=== PATIENT | female | born 1945 | race Caucasian/White ===

== ENCOUNTER → 2017-09-24 11:06 | Outpatient (CLI) | payer MEDICARE, SELFPAY ==
--- NOTE | 2017-09-24 11:15 | XR_ITS ---
XR lumbar spine min 4V Ordering Physician: George Dietrich MD Patient Age: 72 years: Female HISTORY: ITS.REASON: LUMBAGO WITH LT SCIATICA TECHNIQUE: Five-view lumbar spine series COMPARISON : No previous FINDINGS The vertebral bodies appear intact with no compression fractures there is a mild dextrocurvature at the lower L-spine L4/S1. This reflects the degenerative disc space narrowing here at the lower L-spine. Nonspecific straightening of the lumbar spine on lateral view noted. L5/S1. Mild disc space narrowing and vacuum phenomena. Disc space during most evident to the right L4/5. Most pronounced disc space narrowing & spondylosis at level, most evident disc narrowing to the left.. Sclerotic endplate reactive changes about this markedly narrowed disc space. Mild marginal osteophytes seen circumferentially... Posterior hypertrophic ridging does appear encroach upon the neural foramen bilaterally. L3/4. Mild disc space narrowing L2/3 mild disc space narrowing L1/2. Fairly pronounced degenerative disc space narrowing. Again note reactive sclerotic endplate changes about the narrowed disc space. Circumferential marginal osteophytes most evident rightward L1/2. Facet hypertrophy arthropathy throughout the L-spine. A most evident on the right at the lower L-spine. SI joints satisfactory. IMPRESSION Degenerative changes lumbar spine. Multilevel degenerative disc space narrowing. Most pronounced degenerative disc space narrowing L4/5 & L1/2 . Associated mild dextrocurvature at the lower most L-spine
== END ==
PROVIDERS: PCP Family Medicine; Visit Provider Family Medicine
DX: M54.42 Lumbago with sciatica, left side (principal)
CPT/HCPCS: 72110

== ENCOUNTER → 2017-10-05 14:48 | Outpatient (CLI) | payer MEDICARE, SELFPAY ==
--- NOTE | 2017-10-05 14:54 | XR_ITS ---
XR knee LT 3V HISTORY: ITS.REASON: LEFT KNEE PAIN ORDERING PHYSICIAN: Rao Salazar MD PATIENT AGE: 72 years COMPARISON: None FINDINGS: No fracture or dislocation. No lytic or blastic change. Normal mineralization. There is minimal spurring of the knee joint space medially. The joint space itself is relatively well-preserved. IMPRESSION: Minimal spurring along the medial compartment suggesting minimal osteoarthritic change otherwise negative left knee
== END ==
PROVIDERS: PCP Family Medicine; Visit Provider Family Medicine
DX: M25.562 Pain in left knee (principal)
CPT/HCPCS: 73562

== ENCOUNTER → 2018-04-20 10:14 | Outpatient (CLI) | payer MEDICARE, SELFPAY ==
--- NOTE | 2018-04-20 | MM_ITS ---
MM Dig screening mamm BI w/CAD ORDERING PHYSICIAN : [facility] PATIENT AGE: 72 years GENDER: Female COMPARISON: December 2015, March 2017, August 20142013. INDICATION: ITS.REASON: SCREENING. No hormones. No new complaints noncontributory family history TECHNIQUE: Standard CC and MLO images were obtained. R2 CAD reviewed. Additional nipple profile CC obtained FINDINGS: [id number] areas residual breast tissue density seen at the retroareolar region, more evident on right than left. This pattern is stable since previous studies RIGHT BREAST:. No significant findings. No new areas of concern. Stable retroareolar fibroglandular elements. Minimal vascular calcifications. LEFT BREAST:No significant new findings. Bilateral follow-up one year IMPRESSION: Stable bilateral mammogram. No new areas of concern. Follow-up one year recommended BI-RADS Category: 1 Negative RECOMMENDED FOLLOW-UP: 1YR 1 YEAR FOLLOW-UP (A letter has been sent to the patient regarding results of the study.)
== END ==
PROVIDERS: PCP Family Medicine; Visit Provider Nurse Practitioner Obstetrics & Gynecology
DX: Z12.31 Encounter for screening mammogram for malignant neoplasm of breast (principal)
CPT/HCPCS: 77067

== ENCOUNTER → 2020-02-21 15:11 | Outpatient (CLI) | payer MEDICARE, SELFPAY ==
--- NOTE | 2020-02-21 15:14 | MM_ITS ---
PROCEDURE: MM DIG SCREENING MAMM BI W/CAD Referring Doctor: Rao Salazar Patient Age:74Y CLINICAL INDICATION: SCREENING no hormones, no new complaints, and noncontributory family history COMPARISON: MG [facility]B DIG MAMM-SCREEN TERESA from 08/14/2013 MG [facility]B DIG MAMM-SCREEN TERESA from 08/16/2014 MG DMSB DIG MAMM-SCREEN TERESA from 12/18/2015 MG DMSB DIG MAMM-SCREEN TERESA W/CAD from 03/10/2017 MG [facility] MM Dig screening mamm BI w/CAD from 04/20/2018 TECHNIQUE: Standard CC and MLO images were obtained. R2 CAD reviewed. Bilateral digital breast tomosynthesis included. FINDINGS: Moderate breast density. Area of asymmetric fibroglandular elements most notable at the right retroareolar region-but appearing stable compared to multiple previous studies dating back to 2013. At the left breast a areas mild asymmetric features appear stable, most notable area at superior central left breast appears similar to previous studies dating back to 2015. No significant appearing change of overall left nor right breast but. Prior studies are quite helpful bilaterally in supporting stability No new dominant or suspicious mass. No suspicious calcifications. Bilateral follow-up 1 year recommended IMPRESSION: Stable bilateral mammogram; with no new areas of concern A stable areas of asymmetry and areas of moderate density breast Bilateral follow-up 1 year recommended BI-RAD Category: 2 Benign Finding(s) FOLLOW-UP: 1YR 1 Year Follow-up (A letter has been sent to the patient regarding results of the study.) Dictated by: Jaciel Johnson MD 02/26/2020 11:57 Jaciel Johnson MD in [place] 02/26/2020 11:57
== END ==
PROVIDERS: PCP Family Medicine; Visit Provider Family Medicine
DX: Z12.31 Encounter for screening mammogram for malignant neoplasm of breast (principal)
CPT/HCPCS: 77063; 77067

== ENCOUNTER 2020-06-02 17:31 | Inpatient (IN) | payer MEDICARE, SELFPAY ==
[2020-06-02 17:33] VITALS: BP 134/40; PULSE 67; RESP 16; TEMP 36.6; O2SAT 98; BMI 21.9
[2020-06-02 17:55] VITALS: BMI 21.9
--- NOTE | 2020-06-02 17:57 | CT_ITS ---
PROCEDURE: CT CERVICAL SPINE WO CON Referring Doctor: Julio Cesar Hernandez Patient Age:75Y CLINICAL INDICATION: FALL Fall does remember what happened. Hit head. 2 COMPARISON: CT CT CERVICAL SPINE WO CON from 04/02/[address] HEAD/BRAIN WO CON from 06/02/2020 TECHNIQUE: No IV contrast Helical axial images obtained with sagittal and coronal reformats. All CT scans at the facility use one or more dose reduction, viz: automated exposure control, ma/kV adjustment per patient size (including targeted exams where dose is matched to indication, i.e. head), or iterative reconstruction technique. FINDINGS: Cervical spine-no fracture nor subluxation is evident. Normal prevertebral soft tissues.. Stable satisfactory alignment Degenerative changes: Disc space narrowing with posterior osteophytes developing at C5/6, C6/7; this yields borderline central canal stenosis C6/7; mild foraminal encroachment bilaterally at each of these levels. . At C5/6 spurring is most evident to the left... . C4/5.. The scant posterior osteophyte and uncovertebral joint formation Degenerative facet changes bilaterally. On the right these are most evident at C2/3-C3/4. On the left facets C4/5 most evident and to less degree C2/3-and C 3/4... Normal C1/C2 relationships. Apices of lungs are clear with no acute findings. IMPRESSION: No acute fracture or subluxation of the cervical spine Degenerative changes C-spine as detailed in text A degenerative disc space narrowing and spondylosis most evident at C5/6 and-C6/7. With borderline spinal stenosis C6/7 A the the the Dictated by: Jaciel Johnson MD 06/02/2020 22:09 Jaciel Johnson MD in [place] 06/02/2020 22:09
--- NOTE | 2020-06-02 17:57 | CT_ITS ---
PROCEDURE: CT HEAD/BRAIN WO CON Referring Doctor: Julio Cesar Hernandez Patient Age:75Y CLINICAL INDICATION: FALL Patient does not remember what happened. Multiple injuries COMPARISON: CT CT HEAD/BRAIN WO CON from 04/02/2019 TECHNIQUE: No IV contrast. Standard axial images were obtained. All CT scans at the facility use one or more dose reduction, viz: automated exposure control, ma/kV adjustment per patient size (including targeted exams where dose is matched to indication, i.e. head), or iterative reconstruction technique. FINDINGS: No acute intracranial findings. No intracranial hemorrhage.. No territorial infarct No subdural or extra-axial fluid collection is evident. . . There is diffuse cerebral atrophy age-appropriate. Mild chronic small vessel deep white-matter ischemic gliotic changes are likely present accounting for some subtle low-density in the periventricular deep white matter regions but No hydrocephalus.The ventricles and basal cisterns appear clear and satisfactory. No mass or midline shift nor mass effect. Posterior fossa is satisfactory. Note dense calcification of the left vertebral artery as well as moderate calcification at the carotid siphons bilaterally.. Skull intact-calvarium and scalp unremarkable. . Mastoid air cells are well developed and clear. Although the sclerotic changes at the right mastoid tip may reflect old right mastoiditis in this region. Nomastoid effusions currently Middle ear clear. IAC's symmetric. . Mild mucosal thickening at the posterior sphenoid sinus. Maxillary ethmoid and frontal sinuses are clear a. the the the the. IMPRESSION: No acute intracranial findings Dictated by: Jaciel Johnson MD 06/02/2020 18:53 Jaciel Johnson MD in [place] 06/02/2020 18:53
--- NOTE | 2020-06-02 17:57 | ECG_ITS ---
APPROVED REPORT Exam: Resting ECG HR:66 bpm ECG Measurements Heart Rate 66 AXES HI 132 P 79 QRSd 84 QRS 27 QT 414 T 52 QTc 434 Conclusion Normal sinus rhythm Normal ECG Electronically signed by : Lee Esposito, 06/03/2020 05:53:18
--- NOTE | 2020-06-02 17:57 | CT_ITS ---
PROCEDURE: CT HIP LT WO CON Referring Doctor: Julio Cesar Hernandez Patient Age:75Y CLINICAL HISTORY: FALL does not remember what happened. Left hip pain COMPARISON: No exams were available for comparison TECHNIQUE: No IV contrast Helical axial images obtained with sagittal and coronal reformats. All CT scans at the facility use one or more dose reduction, viz: automated exposure control, ma/kV adjustment per patient size (including targeted exams where dose is matched to indication, i.e. head), or iterative reconstruction technique. FINDINGS: . Acute fracture transversing left femoral neck . superiorly fracture passes from the midportion of the femoral neck then passes vertical, oblique course extending through the cortex inferiorly at upper margin of the lesser trochanter. Superiorly approximate 6 mm anterior displacement of the distal fracture fragment. Slight angulation at the fracture with with apex of fracture directed anteriorly. Minor rotation at the fracture appreciated on axial images. . The acetabulum is intact with no fracture. There is some hypertrophic lipping at acetabulum; femoral head itself seems to be intact. Diffuse demineralization noted. The iliac bone, ischium, left superior and inferior pubic ramus intact. Visualized portions of sacrum intact. Facet hypertrophy at lower L-spine noted. Also degenerate disc disc space narrowing L5/S1 IMPRESSION: Left femoral neck fracture. The fracture passes down to the femoral neck to extend inferiorly at the the lesser trochanter Diffuse osteopenia Dictated by: Jaciel Johnson MD 06/02/2020 21:38 Jaciel Johnson MD in [place] 06/02/2020 21:38
--- NOTE | 2020-06-02 18:15 | PC.NURSE ---
PT WENT TO CT
[2020-06-02 18:22] LABS: Basophils # 0.1 K/mm3 (0-0.2); Basophils % 0.5 % (0.1-2.0); Eosinophils % 0.2 % (0.1-12.0); Hematocrit 35.7 % (37.0-47.0); Hemoglobin 11.8 g/dL (12.2-16.2); Lymphocytes # 1.1 K/mm3 (0.7-4.5); Mean Corpuscular HGB Conc 33.1 g/dL (31.8-35.4); Mean Corpuscular Hemoglobin 30.9 pg (27.0-31.2); Mean Corpuscular Volume 93.5 fl (81-99); Mean Platelet Volume 8.2 fl (7.4-10.4); Monocytes # 0.5 K/mm3 (0.1-1.0); Monocytes % 3.7 % (1.7-9.3); Neutrophils # 10.9 K/mm3 (1.8-7.8); Neutrophils % 86.6 % (37.0-80.0); Platelet Count 247 K/mm3 (142-424); Red Blood Count 3.81 M/mm3 (4.20-5.40); Red Cell Distribution Width 12.1 % (11.5-17.5); White Blood Count 12.6 K/mm3 (4.8-10.8)
[2020-06-02 18:23] LABS: MANUAL DIFFERENTIAL MANUAL DIFFERENTIAL (MANUAL DIFF)
--- NOTE | 2020-06-02 18:29 | PC.NURSE ---
Calling [facility]
[2020-06-02 18:33] LABS: Anion Gap 13.9 mEq/L (5-15); Blood Urea Nitrogen 18 mg/dl (7-17); Calcium 9.2 mg/dl (8.4-10.2); Carbon Dioxide 27 mmol/L (22.0-30.0); Chloride 100 mmol/L (98-107); Creatinine Clearance Estimated 42 mL/min (50-200); Estimated Glomerular Filt Rate 61 ml/min (>60); GFR (African American) 74 ML/MIN (>60); Glucose 137 mg/dl (74-100); Potassium 3.9 mmoL/L (3.5-5.1); Sodium 137 mmol/L (136-145)
[2020-06-02 18:35] LABS: Lymphocytes % 10 % (10-50); Monocytes % 1 % (2-9); Neutrophils % 85 % (42-76); Platelet Estimate Normal; RBC Morphology Normal; Total Cells Counted 100
--- NOTE | 2020-06-02 19:14 | XR_ITS ---
PROCEDURE: XR CHEST PORTABLE Referring Doctor: David Julio Cesar Patient Age:75Y CLINICAL HISTORY: hip fx COMPARISON: CT CT CERVICAL SPINE WO CON from 04/02/[address] CERVICAL SPINE WO CON from 06/02/2020 FINDINGS: AP supine chest x-ray. Mild cardiomegaly. . A prominent dense calcified node at AP window region is seen on previous [address] image reflects old granulomatous disease the Slight coarsening of lung markings bilaterally-suspect most likely reflects mild chronic changes possibly with some mild vascular congestion. The supine projection does accentuate upper lobe vascularity which may also contribute to this appearance a as well. But minor wispy density at the left suprahilar region favor reflect some minimal atelectasis and scarring posteriorly but difficult to exclude a subtle early patchy area infiltrate here.. Upper normal markings right infrahilar region more so than left infrahilar region most likely reflecting slight crowding of generous vascular markings; doubt but difficult to exclude early infiltrate particularly at Right infrahilar region CP angles are clear no pleural effusion but no pneumothorax.. Ribs and chest wall unremarkable IMPRESSION: Slight coarsening markings bilaterally most likely reflecting mild chronic changes, possibly with subtle vascular congestion as well. Cardiomegaly., . Mild accentuation of markings infrahilar regions elsewhere most likely reflecting chronic change and mild atelectasis,. Consider, and might suggest follow-up chest x-ray in morning to re-evaluate in attempt to better exclude subtle early infiltrate in view of the leukocytosis, particularly at right infrahilar region. Dictated by: Jaciel Johnson MD 06/02/2020 21:56 Jaciel Johnson MD in [place] 06/02/2020 21:56
--- NOTE | 2020-06-02 19:21 | [facility].EDGENADL ---
ED Disposition Clinical Impression: Closed left hip fracture Qualifiers: Encounter type: initial encounter Qualified Code(s): S72.002A - Fracture of unspecified part of neck of left femur, initial encounter for closed fracture Disposition: Admitted As Inpatient Condition on Discharge: Good Referrals: Rao Salazar MD [Primary Care Provider] - - Critical Care Critical Care Time: No Attestation: On 06/02/20, the high probability of a clinically significant, sudden or life threatening deterioration of the following system(s) required my full and direct attention, intervention and personal management. The time I documented below is in addition to time spent performing reported procedures but includes the following listed in this critical care notation. Medical Decision Making - Mitch Inquiry Pt receiving controlled substance: Yes Mitch was queried for this patient: No Reason not queried -: Emergent pt cond-no time Risks and benefits of using a controlled substance: were not discussed with pt by me Vital Signs: 06/02/20 17:33 Temperature 97.8 F Temperature Source Oral Pulse Rate [Radial] 67 Respiratory Rate 16 Blood Pressure [Right Radial Artery] 134/40 L Blood Pressure Mean [Right Radial Artery] 71 Blood Pressure Position [Right Radial Artery] Sitting 02 Sat by Pulse Oximetry 98 Oxygen Delivery Method Room Air - Lab Data Lab Results 06/02/20 18:15: Sodium 137, Potassium 3.9, Chloride 100, Carbon Dioxide 27, Anion Gap 13.9, BUN 18 H, Creatinine 0.90, Estimated Creat Clear 42, Estimated GFR 61, Est GFR ( Amer) 74, Glucose 137 H, Calcium 9.2 06/02/20 18:15: WBC 12.6 H, RBC 3.81 L, Hgb 11.8 L, Hct 35.7 L, MCV 93.5, MCH 30.9, MCHC 33.1, RDW 12.1, Plt Count 247, MPV 8.2, Neut % (Auto) 86.6 H, Lymph % (Auto) 9.0 L, Quay % (Auto) 3.7, Eos % (Auto) 0.2, Baso % (Auto) 0.5, Neut # (Auto) 10.9 H, Lymph # (Auto) 1.1, Quay # (Auto) 0.5, Eos # (Auto) 0.0, Baso # (Auto) 0.1, Total Counted 100, Neutrophils % (Manual) 85 H, Band Neutrophils % 4.0, Lymphocytes % (Manual) 10, Monocytes % (Manual) 1 L, Platelet Estimate Normal, RBC Morphology Normal 06/02/20 19:50: Urine Color Yellow, Urine Appearance Clear, Urine pH 6.0, Ur Specific [place] 1.025, Urine Protein Trace, Urine Glucose (UA) Negative, Urine Ketones Trace, Urine Blood 1+, Urine Nitrate Negative, Urine Bilirubin Negative, Urine Urobilinogen 0.2, Ur Leukocyte Esterase Negative, Urine RBC 5-10, Ur Squamous Epith Cells 3-5, Amorphous Sediment Trace, Urine Mucus Trace Result diagrams: 06/02/20 18:15 06/02/20 18:15 Orders (Tests/Meds): ED MEDICATIONS Generic Name Dose Route Start Last Admin Trade Name Freq PRN Reason Stop Dose Admin Sodium Chloride 1,000 mls @ 999 mls/hr 06/02/20 18:30 06/02/20 18:39 Sod Chlor 0.9% 1000ml Bag IV 06/02/20 19:30 999 mls/hr .Q1H1M VANESA Administration Discontinued Medications Generic Name Dose Route Start Last Admin Trade Name Freq PRN Reason Stop Dose Admin Morphine Sulfate 2 mg 06/02/20 18:17 06/02/20 18:39 Morphine 2mg/Ml Syringe IV 06/02/20 18:18 2 mg ONCE ONE Administration Morphine Sulfate 4 mg 06/02/20 19:13 06/02/20 19:24 Morphine 4mg/Ml Syringe IV 06/02/20 19:14 4 mg ONCE ONE Administration Ondansetron HCl 4 mg 06/02/20 18:17 06/02/20 18:39 Ondansetron 4mg/2ml Vial IV 06/02/20 18:18 4 mg ONCE ONE Administration ORDERS Category Date Time Status CT cervical spine wo con Stat Cat Scan 06/02/20 17:[address] hip LT wo con Stat Cat Scan 06/02/20 17:57 Taken Hip XR left minimum 2 views [XR hip LT 2-3V w/pelvis] Exams 06/02/20 19:22 Taken Stat XR chest portable Stat Exams 06/02/20 19:14 Taken Covid-19 IgG/IgM ([facility]) Stat Lab 06/02/20 18:15 Received - CT Data CT Scan: Head, C-Spine, Other (left hip) Time Received: 19:10 ([facility] fax) ED CT Reviewed: Yes: I have viewed the radiologist's interpretation Findings Narrative: Head: Negative Cervi
--- NOTE | 2020-06-02 19:22 | XR_ITS ---
PROCEDURE: XR HIP LT 2-3V W/PELVIS Referring Doctor: Julio Cesar Hernandez Patient Age:75Y CLINICAL INDICATION: hip fx left hip pain left hip fracture fall COMPARISON: CT CT HIP LT WO CON from 06/02/2020 FINDINGS: Left hip AP and cross-table lateral view, with AP pelvis performed today There is a left femoral neck fracture through the base of the femoral neck. The inferior aspect of the fracture extends to the upper margin of the lesser trochanter the superior aspect the fracture extends through the mid to lateral left femoral neck. No prominent displacement. The left femoral head appears to articulate satisfactorily with the left acetabulum. Mild hypertrophic lipping at both acetabulum. Hip joint spaces are well maintained. The osseous pelvis is intact but the right hip otherwise unremarkable. Multilevel degenerative disc changes changes lower L-spine noted IMPRESSION: Left femoral neck fracture. The fracture passes through the femoral neck down to the lesser trochanter Osseous pelvis otherwise intact Dictated by: Jaciel Johnson MD 06/02/2020 22:37 Jaciel Johnson MD in [place] 06/02/2020 22:37
--- NOTE | 2020-06-02 19:36 | PC.NURSE ---
Dr Martin alonzod for Dr Hernandez
--- NOTE | 2020-06-02 19:46 | PC.NURSE ---
Dr Salazar paged again
--- NOTE | 2020-06-02 19:51 | PC.NURSE ---
Dr Hernandez speaking with Dr Salazar
--- NOTE | 2020-06-02 19:52 | PC.NURSE ---
call placed to house for bed assignment, spoke with brendon
[2020-06-02 19:57] LABS: Appearance,Urine CLEAR (Clear); Blood, Urine 1+ (Negative); Color,Urine YELLOW (Yellow); Glucose,Urine (UA) Negative (Negative); Ketones,Urine TRACE (Negative); Leukocyte Esterase,Urine Negative (Negative); Microscopic, Urine URINE MICROSCOPIC (MICROSCOPIC); Nitrate,Urine Negative (Negative); Protein,Urine TRACE (Negative); Specific Gravity, Urine 1.025 (1.005-1.030); Urobilinogen,Urine 0.2 EU/dl (0.2)
[2020-06-02 20:04] LABS: Amorphous Sediment,Urine Trace /lpf; Bilirubin,Urine Negative (Negative); Mucus,Urine Trace /lpf
[2020-06-02 20:33] LABS: Coronavirus 19 IgG Antibody Negative (Negative); Coronavirus 19 IgM Antibody Negative (Negative)
[2020-06-02 20:47] VITALS: BP 119/75; PULSE 91; RESP 15; TEMP 36.6; O2SAT 98
[2020-06-02 22:00] VITALS: BP 123/56; PULSE 75; RESP 18; TEMP 37.1; O2SAT 97
--- NOTE | 2020-06-02 22:30 | PC.NURSE ---
ADMISSION ASSESSMENT COMPLETE,PT LUNGS CLEAR ALL FRONT,RESP.EVEN AND UNLABORED.SKIN WARM TO TOUCH,PT SEDATED AT TIMES,EASILY AROUSED BY NAME.SHE WAS GIVEN MORPHINE A COUPLE TIMES AND IT WAS NOT HELPING PAIN SO ER GAVE HER DILAUDID PRIOR TO BRING HER TO FLOOR.PT ON 2 LITER OXYGEN PER NC.SAT LEVEL WAS 86-87 ON 2 LITERS OF OXYGEN,HAD PT TAKE A SEVERAL DEEP BREATHS AND IT COMES UP TO 98-99%.PT REPORTS PAIN IS BETTER,A 2 NOW.PT S LEFT LEG SHORTER THAN RIGHT,BILATERAL PEDAL PULSES NOTED,WARM TO TOUCH.PT HAS HER OWN THIGH HIGH TEDS ON.BAKER CATH PATENT AND DRAINING DARK YELLOW URINE.PULSE OX REMAINS ON WITH PT DOOR OPEN TO HEAR ALARM,SO CAN TELL PT TO TAKE SOME DEEP BREATHES,WILL CONTINUE TO MONITOR
[2020-06-03] VITALS (9 sets, daily range): BP systolic 127–159; BP diastolic 62–98; PULSE 76–94; RESP 16–20; TEMP 36.6–38.8; O2SAT 94–98
--- NOTE | 2020-06-03 | XR_ITS ---
PROCEDURE: XR CHEST PORTABLE CLINICAL HISTORY: f/u per radiologist COMPARISON: CR XR CHEST PORTABLE from 06/02/2020 FINDINGS: The cardiomediastinal silhouette and pulmonary vascularity are within normal limits. The lungs are clear without infiltrates, suspicious nodules, or pleural effusions. Old granulomatous disease. No acute bony findings. Previous suspected area of infiltrate is felt to be due to the overlapping vessels. IMPRESSION: No acute findings. Dictated by: Vicente Werner MD 06/03/2020 10:16 Vicente Werner MD in [place] 06/03/2020 10:16
--- NOTE | 2020-06-03 00:15 | PC.NURSE ---
ALARM GOING OFF ON PULSE OX MACHINE,,SAT LEVEL AT 84-87% WITH 2 LITERS OF OXYGEN,PT SNORING,EASILY AROUSED AND HAD PT TAKE SOME DEEP BREATHES AND SAT.LEVEL 98%.ASKED PT IF SHE HAD BEEN TOLD SHE HAD SLEEP APNEA OR THAT SHE SNORED AND SHE SAID NO,BUT HER SAID SHE SNORED. B/P 127/66,P-87,R-18,T-98.1WILL CONTINUE TO MONITOR,PT DENIES ANY PAIN AT THIS TIME
--- NOTE | 2020-06-03 04:59 | PC.NURSE ---
PT HAS SLEPT WELL UNTIL THIS MORNING LEFT HIP PAIN AGAIN,MEDICATED WITH DILAUDID 1 MG IVP AND THEN ZOFRAN FOR NAUSEA AFTER THAT,SINCE THE DILAUDID MADE HER NAUSEATED.PT LUNGS CLEAR,RESP.EVEN AND UNLABORED.LEFT LEG SHORTER THAN RIGHT,THIGH HIGH LAURENCE HOSE REMAIN ON BOTH LEGS,PEDAL PULSE BILATERALLY,BAKER DRAINING DARK YELLOW URINE AND 200ML EMPTIED FROM IT.PULSE OX REMAINS ON PT SINCE HER SAT.LEVELS DROPPED WITH THE DILAUDID EARLIER,WILL CONTINUE TO MONITOR
--- NOTE | 2020-06-03 05:14 | PC.NURSE ---
PT SAT,LEVEL DROPPED AGAIN TO 87%,PT EASILY AROUSED,HAD HER TAKE SOME DEEP BREATHES AND IT RETURNED TO 96%.PT SAID PAIN AND NAUSEA WAS BETTER,PAIN MAYBE A 2 NOW,REPORTED MOUTH BEING DRY,SWAB TOOTHETTES GIVEN SO PT COULD WET HER MOUTH
--- NOTE | 2020-06-03 07:25 | PC.NURSE ---
Report received from LUCA Cedeno.
--- NOTE | 2020-06-03 07:30 | PC.NURSE ---
REPORT GIVEN TO JEFFRN
--- NOTE | 2020-06-03 07:36 | P.CONPHA_ITS ---
[facility] Pharmacy VTE Monitoring - Patient Demographics Admission date: 06/02/20 Report Date: 06/03/20 Time: 07:36 Allergies/Adverse Reactions: Patient Allergies No Known Allergies Allergy (Verified 04/02/19 06:07) Height: 1.57 m Weight: 54.431 kg Patient Problems: Current Active Problems Closed left hip fracture (Acute) - VTE Risk Labs: VTE Related Lab Results Hgb 11.8 g/dL (12.2-16.2) L 06/02/20 18:15 Hct 35.7 % (37.0-47.0) L 06/02/20 18:15 Plt Count 247 K/mm3 (142-424) 06/02/20 18:15 BUN 18 mg/dl (7-17) H 06/02/20 18:15 Creatinine 0.90 mg/dl (0.52-1.04) 06/02/20 18:15 Estimated Creat Clear 42 mL/min (50-200) 06/02/20 18:15 Was VTE Risk Assessment Performed: Yes VTE Score: 3 VTE Risk Level: Low Risk - Prophylaxis VTE Prophylaxis Ordered?: Yes Types of VTE Prophylaxis: TEDS Knee High Location of Applied Device: Bilateral Lower Extremeties
--- NOTE | 2020-06-03 08:02 | PC.NURSE ---
Suly Stewart APRN at bs to see pt.
--- NOTE | 2020-06-03 08:10 | PC.NURSE ---
Dr. Salazar at bs to see pt. States that he is going to get Cardiology to consult and order an Echo. R/V.
--- NOTE | 2020-06-03 08:15 | PC.NURSE ---
Dr. Salazar remains present in unit and is now personally speaking with on phone.
--- NOTE | 2020-06-03 08:16 | PC.NURSE ---
Radiology at performing chest xray.
--- NOTE | 2020-06-03 08:30 | PC.NURSE ---
Dr. Orozco at bs r/t consultation and discussing POC with pt. Pt verbalizes understanding.
--- NOTE | 2020-06-03 08:49 | CA_ITS ---
APPROVED REPORT EXAM: Comprehensive 2D, Doppler, and color-flow Echocardiogram Toll Line Inspector: Teodora Luna CRT Ht: 5 ft 2 in Wt: 120lbs BSA: 1.54 BP: 134/40 mmHg Indications: Hypertension/HDD, hip fx 2D Dimensions LVOT 1.75 cm (M/F) 1.5-2.5 M-Mode Dimensions RVDd 2.39 cm (0.9-2.6) LA Diam 3.23 cm (1.9-4.0) LVDd 4.67 cm (3.5-5.7) Ao Diam 2.77 cm (2.0-3.7) LVDs 2.98 cm (3.5-5.7) IVSd 1.18 cm (0.6-1.1) PWd 0.99 cm (0.6-1.1) EF (Teich) 65.90% FS 36.20% EDV (Teich) 100.80 mL ESV (Teich) 34.40 mL LV Diastology E Decel Time 247.00 (160-240 msec) E/A Ratio 1.16 MED E' 13.10 (< 7 cm/sec) MED A' 17.00 cm/s E'/MED E' Ratio 9.38 (>14) LAT E' 11.70 (<10 cm/sec) LAT A' 15.10 cm/s E/LAT E' Ratio 10.50 (>14) Aortic Valve LVOT Max 164.00 (70-110 cm/s) LVOT VTI 37.89 cm AoV Peak Mina. 180.00 (50-130 cm/s) AI PHT 285.00 ms AO Peak GR. 13.00 mmHg AO Mean GR. 6.70 (<5 mmHg) AO VTI 35.93 (18-25 cm) DARIO (VTI) 2.54 (2.5-4.5 cm2) Mitral Valve MV A Velocity 106.00 (40-130 cm/s) E/A Ratio 1.16 MV Decel. Time 247.00 (160-240 ms) Pulmonary Valve PV Peak Velocity 101.00 (50-150 cm/s) Tricuspid Valve TR P. Velocity 316.00 cm/s RAP Estimate 10.00 mmHg RVSP 49.90 mmHg Left Ventricle Left atrium is mildly enlarged, left ventricle is normal size, mild concentric left ventricular hypertrophy, visually estimated ejection fraction 55% with no regional wall motion abnormality, grade 1 diastolic dysfunction seen without tissue Doppler evidence of raise left atrial pressure. Right Ventricle Right atrium and right ventricle are normal size and contractility. Aortic Valve Aortic valve is minimally thickened and fibrosed, there is no aortic stenosis, there is mild aortic insufficiency. Mitral Valve Mitral valve is grossly normal, there is mild mitral regurgitation. Tricuspid Valve Tricuspid valve is grossly normal, there is mild tricuspid regurgitation, tricuspid regurgitation jet velocity is inadequate for calculation of the right ventricular systolic pressure. Pulmonic Valve Pulmonic valve is poorly visualized. Great Vessels Aortic root is normal size. Pericardium No significant pericardial effusion noted. Conclusion 1. Mildly enlarged left atrium, normal left ventricular size, mild concentric left ventricular hypertrophy, visually estimated ejection fraction 55% with no regional wall motion abnormality, grade 1 diastolic dysfunction seen without tissue Doppler evidence of raise left atrial pressure. 2. Mild aortic, mild mitral and tricuspid regurgitation. 3. No significant pericardial effusion noted. Electronically signed by : Pollo Gr, 06/03/2020 19:49:07
--- NOTE | 2020-06-03 09:10 | HMH.HP ---
*Admission Date: 06/02/20 <Suly Stewart - 06/03/20 09:26> *Chief complaint: Left leg pain with fracture of the hip. <Suly Stewart - 06/03/20 09:26> *History of present illness: Ms. Zelaya is a 75-year-old female with a history of hypertension, and varicose veins, who was brought by her to [facility] emergency room for evaluation after a fall. She states that she felt funny and then the next thing she remembers sitting in a chair on the porch. Her states per ER report that she tripped and fell. She does not recall this. She states she just felt funny but denies having any chest pain or shortness of breath, palpitations and dizziness. She does not feel that she injured any other part of her body. After the fall she was lifted to the chair by her and EMS was called. They helped to place her in their truck to be brought to the emergency room. She was unable to bear weight. Patient does give a history last week of some GI upset with nausea but no vomiting. She did have diarrhea 1 day. She has not had any upper respiratory symptoms to include cough, shortness of breath, or fever. She has not been eating and drinking as usual. She denies previous chest pain and shortness of breath. She is usually healthy and has not been hospitalized since the of her youngest child 49 years ago. Laboratory data this morning reveals white blood cell count of 13,000 with a hemoglobin of 11 and hematocrit of 36.8. Sodium is 151 potassium is 4.6; kidney function with a BUN of 44 and creatinine 1.4. With evaluation in the emergency room she was found to be afebrile and received a liter of IV fluids as well as morphine for pain and Zofran for nausea. CT of the head and C-spine and left hip were evaluated showing all were negative except for relatively nonacute displaced fracture of the left femoral neck extending into the lesser trochanter. Chest x-ray on admission showed the following: Slight coarsening markings bilaterally most likely reflecting mild chronic changes, possibly with subtle vascular congestion as well. Cardiomegaly., Mild accentuation of markings infrahilar regions elsewhere most likely reflecting chronic change and mild atelectasis,. Consider, and might suggest follow-up chest x-ray in morning to re-evaluate in attempt to better exclude subtle early infiltrate in view of the leukocytosis, particularly at right infrahilar region. EKG was normal and revealed a normal sinus rhythm. At the time of this exam patient appears comfortable lying in the bed after receiving pain medicine.. She remains n.p.o. for possible surgery. She continues to deny chest pain and shortness of breath. <Suly Stewart 06/03/20 12:04> [facility] History Medical History: Reports:: Hypertension Denies:: Cancer, Diabetes Mellitus Type 1, Diabetes Mellitus Type 2, Internal Pacemaker, MRSA <Suly Stewart 06/03/20 09:26> *Have you ever received a pneumonia vaccine?: Yes <Suly Stewart 06/03/20 09:26> *Have you received a flu vaccine this season?: Yes (FEB 2020) <Suly Stewart 06/03/20 09:26> Comment:: Varicose veins <Suly Stewart 06/03/20 09:26> Other Surgeries: Yes: Tubal Ligation. No: Pacemaker <Suly Stewart 06/03/20 09:26> Amputation: No <Suly Stewart 06/03/20 09:26> Fractures: Yes (PRESENT LEFT HIP) <Suly Stewart 06/03/20 09:26> - *Social History Last grade of school completed: High school graduate <Suly Stewart 06/03/20 09:26> Alcohol Intake: never <Suly Stewart 06/03/20 09:26> *Occupational Status:: other (Housewife) <Suly Stewart 06/03/20 09:26> Housing: house <Suly Stewart 06/03/20 09:26> Household Members: spouse <Suly Stewart 06/03/20 09:26> *Travel in the last 8 weeks: None <Suly Stewart 06/03/20 09:26> Family Hx:: Diabetes, Heart Attack, Hypertension, Stroke <Suly Stewart 06/03/20 09:26> Review of Systems - Constitutional Denies chills, Denies hea
--- NOTE | 2020-06-03 09:20 | PC.NURSE ---
Cardiology at for consultation.
--- NOTE | 2020-06-03 09:27 | HMH.CNCARD ---
History of Present Illness Consult date: 06/03/20 Requesting physician: Rao Salazar Consult reason: pre-op evaluation Chief complaint: hip pain History of present illness: This is a 75-year-old white female who presented to [facility] emergency room for evaluation after a fall. The patient states that she felt funny while she was walking to her back porch but she assumed that it was from not eating much throughout the day. The patient states that she does not know what happened that she thinks she blacked out and fell. Her states that she tripped and fell. Her picked her up and put her in a chair. She states that she woke up sitting in the chair and the EMS service was there. She was brought to the emergency department in her car unable to bear weight on her left lower extremity. She denies any chest pain or pressure. She denies any shortness of breath or edema. She denies any fever, chills, PND or orthopnea. She does report having some GI upset over the last week with some nausea but no vomiting. She did have 1 day of diarrhea. She states that she has not been eating and drinking as usual because she felt like she had an upset stomach. She does complain of pain in her left hip this morning but otherwise she states that she feels really good. She denies any personal history of coronary disease or IA. She states that her mother at the age of 69 from an IA and her father from a CVA. She reports that she has had her heart checked out and everything was normal. [facility] History I have reviewed the patient's past medical history: Yes Medical History: Reports:: Hypertension Denies:: Cancer, Diabetes Mellitus Type 1, Diabetes Mellitus Type 2, Internal Pacemaker, MRSA *Have you ever received a pneumonia vaccine?: Yes *Have you received a flu vaccine this season?: Yes (FEB 2020) Other Surgeries: Yes: Tubal Ligation. No: Pacemaker Amputation: No Fractures: Yes (PRESENT LEFT HIP) - *Social History Last grade of school completed: High school graduate Alcohol Intake: never *Occupational Status:: other (Housewife) Housing: house Household Members: spouse *Travel in the last 8 weeks: None Family Hx:: Diabetes, Heart Attack, Hypertension, Stroke Meds Home Medications Medication Instructions Recorded Confirmed Type Amlodipine Besylate/Benazepril 1 cap PO DAILY 06/03/20 06/03/20 History [Lotrel 10-20 mg Capsule] atenoloL [Atenolol 25mg Tab] 25 mg PO BID 06/03/20 06/03/20 History Allergies Allergy/AdvReac Type Severity Reaction Status Date / Time No Known Allergies Allergy Verified 04/02/19 06:07 Exam Vital signs and Labs for Last 24 Hours: Temp Pulse Resp BP Pulse Ox 97.9 F 76 16 139/70 95 06/03/20 04:15 06/03/20 04:15 06/03/20 04:15 06/03/20 04:15 06/03/20 04:15 Laboratory Results - last 24 hr 06/02/20 18:15: Sodium 137, Potassium 3.9, Chloride 100, Carbon Dioxide 27, Anion Gap 13.9, BUN 18 H, Creatinine 0.90, Estimated Creat Clear 42, Estimated GFR 61, Est GFR ( Amer) 74, Glucose 137 H, Calcium 9.2 06/02/20 18:15: WBC 12.6 H, RBC 3.81 L, Hgb 11.8 L, Hct 35.7 L, MCV 93.5, MCH 30.9, MCHC 33.1, RDW 12.1, Plt Count 247, MPV 8.2, Neut % (Auto) 86.6 H, Lymph % (Auto) 9.0 L, [place] % (Auto) 3.7, Eos % (Auto) 0.2, Baso % (Auto) 0.5, Neut # (Auto) 10.9 H, Lymph # (Auto) 1.1, [place] # (Auto) 0.5, Eos # (Auto) 0.0, Baso # (Auto) 0.1, Total Counted 100, Neutrophils % (Manual) 85 H, Band Neutrophils % 4.0, Lymphocytes % (Manual) 10, Monocytes % (Manual) 1 L, Platelet Estimate Normal, RBC Morphology Normal 06/02/20 18:15: SARS-CoV-2 IgG Ab (Rapid) Negative, SARS-CoV-2 IgM Ab (Rapid) Negative 06/02/20 19:50: Urine Color Yellow, Urine Appearance Clear, Urine pH 6.0, Ur Specific [place] 1.025, Urine Protein Trace, Urine Glucose (UA) Negative, Urine Ketones Trace, Urine Blood 1+, Urine Nitrate Negative, Urine Bilirubin Negative, Urine Urobilinogen 0.2, Ur Leukocyte Esterase N
--- NOTE | 2020-06-03 09:29 | PC.NURSE ---
Pt's now at bs visiting.
--- NOTE | 2020-06-03 10:05 | PC.NURSE ---
Medicated with Morphine 4mg IV for left hip pain of 10 on pain scale. Phenergan 12.5mg IV also given for nausea.
--- NOTE | 2020-06-03 10:05 | HMH.ORTHOCON ---
*Admission Date: 06/02/20 *Reason for consult:: L hip fracture *History of present illness: 75-year-old female admitted overnight through the emergency department after a fall at home. The patient is unsure what happened to cause the fall, noting that she felt funny and blacked out prior to falling. Her was behind her and reported her tripping, but the patient does not recall this. She recalls feeling odd before the fall but does not recall any preceding chest pain, shortness of breath or dizziness. After the fall she was unable to bear weight on the left lower extremity, with severe pain in the left hip. No recent fevers or chills, no chest pain or shortness of breath reported, no recent illnesses or exposures to sick individuals. CT scan of the head and C-spine in the emergency department were negative. She currently complains only of left hip pain, no back pain, no pain, numbness or tingling radiating down the right lower extremity. She has never broken a bone before and has never had surgery on the left hip. Medical history significant for hypertension, denies baseline medication usage. No known drug allergies. [facility] History I have reviewed the patient's past medical history: Yes Medical History: Reports:: Hypertension Denies:: Cancer, Diabetes Mellitus Type 1, Diabetes Mellitus Type 2, Internal Pacemaker, MRSA *Have you ever received a pneumonia vaccine?: Yes *Have you received a flu vaccine this season?: Yes (FEB 2020) Other Surgeries: Yes: Tubal Ligation. No: Pacemaker Amputation: No Fractures: Yes (PRESENT LEFT HIP) - *Social History Last grade of school completed: High school graduate Alcohol Intake: never *Occupational Status:: other (Housewife) Housing: house Household Members: spouse *Travel in the last 8 weeks: None Family Hx:: Diabetes, Heart Attack, Hypertension, Stroke Review of Systems - Review of Systems Review of systems:: pertinent systems reviewed and negative unless documented below - *Neurologic Reports fainting, Denies frequent falls, Denies headache(s), Denies numbness, Denies weakness Meds Home Medications Medication Instructions Recorded Confirmed Type No Known Home Medications 06/03/20 06/03/20 History Allergies Allergy/AdvReac Type Severity Reaction Status Date / Time No Known Allergies Allergy Verified 04/02/19 06:07 Exam Vital signs and Labs for Last 24 Hours: Temp Pulse Resp BP Pulse Ox 98.8 F 89 18 143/62 H 94 L 06/03/20 08:30 06/03/20 08:30 06/03/20 08:30 06/03/20 08:30 06/03/20 08:30 Laboratory Results - last 24 hr 06/02/20 18:15: Sodium 137, Potassium 3.9, Chloride 100, Carbon Dioxide 27, Anion Gap 13.9, BUN 18 H, Creatinine 0.90, Estimated Creat Clear 42, Estimated GFR 61, Est GFR ( Amer) 74, Glucose 137 H, Calcium 9.2 06/02/20 18:15: WBC 12.6 H, RBC 3.81 L, Hgb 11.8 L, Hct 35.7 L, MCV 93.5, MCH 30.9, MCHC 33.1, RDW 12.1, Plt Count 247, MPV 8.2, Neut % (Auto) 86.6 H, Lymph % (Auto) 9.0 L, [place] % (Auto) 3.7, Eos % (Auto) 0.2, Baso % (Auto) 0.5, Neut # (Auto) 10.9 H, Lymph # (Auto) 1.1, [place] # (Auto) 0.5, Eos # (Auto) 0.0, Baso # (Auto) 0.1, Total Counted 100, Neutrophils % (Manual) 85 H, Band Neutrophils % 4.0, Lymphocytes % (Manual) 10, Monocytes % (Manual) 1 L, Platelet Estimate Normal, RBC Morphology Normal 06/02/20 18:15: SARS-CoV-2 IgG Ab (Rapid) Negative, SARS-CoV-2 IgM Ab (Rapid) Negative 06/02/20 19:50: Urine Color Yellow, Urine Appearance Clear, Urine pH 6.0, Ur Specific [place] 1.025, Urine Protein Trace, Urine Glucose (UA) Negative, Urine Ketones Trace, Urine Blood 1+, Urine Nitrate Negative, Urine Bilirubin Negative, Urine Urobilinogen 0.2, Ur Leukocyte Esterase Negative, Urine RBC 5-10, Ur Squamous Epith Cells 3-5, Amorphous Sediment Trace, Urine Mucus Trace I & O for Last 24 hours: Intake & Output 05/31/20 06/01/20 06/02/20 06/03/20 11:59 11:59 11:59 11:59 Intake Total 1000 / 1000 Output Total 350 / 350 Balance 65
--- NOTE | 2020-06-03 10:44 | PC.NURSE ---
Pt currently asleep at this time. remains at bs.
[2020-06-03 10:49] LABS: NT Pro Brain Natriuretic Pep. 2400 pg/mL (0-450)
[2020-06-03 10:53] LABS: Troponin I < 0.01 ng/ml (0.00-0.034)
--- NOTE | 2020-06-03 11:33 | PC.NURSE ---
Remains asleep. remains at bs.
--- NOTE | 2020-06-03 13:53 | PC.NURSE ---
Attempted to reposition pt slightly to rt tilt with pillow in bed r/t complaints of butt pain from being in bed. Reports minimal relief, requests some pain medication as well.
--- NOTE | 2020-06-03 14:48 | PC.NURSE ---
Requests additional pain medication. Reports that Morphine (4mg @ 14:10) has not helped at all, instead, the pain is worse. Pt medicated with Dilaudid 1mg IV.
--- NOTE | 2020-06-03 15:00 | PC.NURSE ---
Dr. Morrow notified of : 1. Pt needing additional pain medication after receiving Morphine 4mg IV 2. Asked about position pt for better comfort and complaints of butt pain. 3. Pt running low grade temp (@1410- 99.8) and (@1442 - 99.2). V/U. Phone order received for Percocet 5/325 po q 4hrs prn pain and continue to use Dilaudid 1mg IV q 4hrs for breakthrough pain. R/V.
--- NOTE | 2020-06-03 17:52 | PC.NURSE ---
Pt has rested a lot better since receiving Dilaudid for pain. She has actually been able to sleep for several hrs straight. Pt awaken to reasses. Denies currently feeling any pain. Temp is now back down to 98.2 oral. remains at pt's bs visiting. Surgery is tentatively scheduled for 13:15 on 06/04/20. Lungs remain clear. Murmur present. No edema. Left leg is visibly shorter than right as well as abducted slightly. +good strong pedal pulses. Pt has complete feeling of affected leg and foot. Is able to move/ wiggle toes. Foot / Leg are warm to touch. Thigh high TEDS remain in place bilat. Has not had anymore nausea and vomiting since receiving Phenergan earlier and being able to have something to eat. Rene cath remains in place and to BSD. Dark yellow urine noted in collection bag. Saline lock remains patent and intact, flushes easily. Continues O2 at 2l/nc. to maintain O2 saturation >90% especially while sleeping soundly from pain medication. Cardiology consult and ECHO was also performed today. See Reports.
--- NOTE | 2020-06-03 18:58 | PC.NURSE ---
Report given to CataRN
[2020-06-04] VITALS (25 sets, daily range): BP systolic 111–163; BP diastolic 52–85; PULSE 72–128; RESP 15–20; TEMP 36.4–43; O2SAT 90–97; BMI 22.4
--- NOTE | 2020-06-04 04:31 | PC.NURSE ---
PT HAS RESTED WELL THIS SHIFT, MEDICATED ONCE FOR PAIN WITH DILAUDID. A&O X 4. NO NAUSEA OR VOMITING, PT NPO SINCE MIDNIGHT. VSS, PT AFEBRILE SINCE 2214. PT USING INCENTIVE SPIROMETER WHILE AWAKE. PT AWAKENS EASILY. PT WEARING O2 AT 2L/NC, PT VERY DROWSY AFTER PAIN MEDICATION GIVEN. LUNGS CTAB. BAKER PATENT WITH DARK YELLOW URINE NOTED. IV PATENT. NO EDEMA TO BLE, LEFT LEG ADBUCTED, NOTED TO BE SHORTER THAN RIGHT. EQUAL PULSES. PT ABLE TO FEEL LEG AND FOOT. NO LOSS OF SENSATIONS. PT ABLE TO MOVE FOOT/ANKLE/TOES. WARM TO PALPATION. NO NEEDS AT THIS TIME. CALL LIGHT WITHIN REACH. WILL CONTINUE TO MONITOR.
[2020-06-04 06:42] LABS: Basophils # 0.1 K/mm3 (0-0.2); Basophils % 0.4 % (0.1-2.0); Eosinophils # 0.1 K/mm3 (0.0-0.4); Eosinophils % 0.6 % (0.1-12.0); Hematocrit 32.1 % (37.0-47.0); Hemoglobin 10.7 g/dL (12.2-16.2); Lymphocytes # 0.8 K/mm3 (0.7-4.5); Lymphocytes % 6.3 % (10-50); Mean Corpuscular HGB Conc 33.3 g/dL (31.8-35.4); Mean Corpuscular Hemoglobin 30.7 pg (27.0-31.2); Mean Corpuscular Volume 92.1 fl (81-99); Mean Platelet Volume 8.2 fl (7.4-10.4); Monocytes # 0.5 K/mm3 (0.1-1.0); Monocytes % 3.7 % (1.7-9.3); Neutrophils # 10.8 K/mm3 (1.8-7.8); Platelet Count 199 K/mm3 (142-424); Red Blood Count 3.48 M/mm3 (4.20-5.40); Red Cell Distribution Width 12.2 % (11.5-17.5); White Blood Count 12.1 K/mm3 (4.8-10.8)
[2020-06-04 06:44] LABS: MANUAL DIFFERENTIAL MANUAL DIFFERENTIAL (MANUAL DIFF)
[2020-06-04 06:46] LABS: Chloride 100 mmol/L (98-107); Sodium 134 mmol/L (136-145)
[2020-06-04 06:47] LABS: Potassium 3.9 mmoL/L (3.5-5.1)
[2020-06-04 06:49] LABS: Blood Urea Nitrogen 12 mg/dl (7-17); Creatinine Clearance Estimated 43 mL/min (50-200); Estimated Glomerular Filt Rate 82 ml/min (>60); GFR (African American) 99 ML/MIN (>60)
[2020-06-04 06:50] LABS: Anion Gap 6.9 mEq/L (5-15); Calcium 8.6 mg/dl (8.4-10.2); Carbon Dioxide 31 mmol/L (22.0-30.0); Glucose 121 mg/dl (74-100)
[2020-06-04 08:15] LABS: Microscopic,Cath URINE MICROSCOPIC (MICROSCOPIC)
[2020-06-04 08:16] LABS: Appearance,Urine/Cath CLEAR (Clear); Bilirubin,Cath Negative (Negative); Blood, Urine/Cath 1+ (Negative); Color,Urine/Cath YELLOW (Yellow); Glucose,Urine/Cath (UA) Negative (Negative); Ketones,Urine/Cath Negative (Negative); Leukocyte Esterase,Cath TRACE (Negative); Nitrate,Cath POSITIVE (Negative); PH,Urine/Cath 5.5 (5.0-8.5); Protein,Urine/Cath TRACE (Negative); Specific Gravity, Urine/Cath >= 1.030 (1.005-1.030); Urobilinogen,Cath 0.2 EU/dl (0.2)
[2020-06-04 08:25] LABS: Bacteria,Urine/Cath TRACE /lpf
--- NOTE | 2020-06-04 08:26 | XR_ITS ---
PROCEDURE: XR CHEST PORTABLE CLINICAL HISTORY: fever COMPARISON: CR XR CHEST PORTABLE from 06/02/2020 CR XR CHEST PORTABLE from 06/03/2020 FINDINGS: The cardiomediastinal silhouette and pulmonary vascularity are within normal limits. Patchy infiltrate is present in the right lower lobe. Chronic changes are present in the right upper lobe. There is evidence of old granulomatous disease. No acute bony abnormalities. IMPRESSION: Right lower lobe infiltrate/pneumonia Dictated by: Vicente Werner MD 06/04/2020 14:37 Vicente Werner MD in [place] 06/04/2020 14:37
--- NOTE | 2020-06-04 08:52 | HMH.ACPN2 ---
<Suly Stewart - Last Filed: 06/04/20 08:52> Internal Medicine - PN: Subj *Date: 06/04/20 *Time: 08:52 Interval history: Patient states she is doing well. She receives Dilaudid for pain and this is beneficial. She states she had no problems eating yesterday. She denies nausea and vomiting. She continues with a Rene catheter. She denies cough and shortness of breath and chest pain. Nursing describes a fever last night greater than 101. She has had blood cultures done. Laboratory data this morning show white blood cell count of 12,100 with a hemoglobin of 10.7 and hematocrit of 32.1. Chemistry show a sodium of 134 with a potassium of 3.9 renal function is normal blood sugar is 121 troponin I is was normal at 0.01 with a BNP of 2400 yesterday. Repeat urine this morning shows negative ketones 1+ blood positive nitrates trace of bacteria. She will have a urine culture done.Repeat chest x-ray showed no acute findings yesterday. We will repeat this today. Exam Vital signs and Labs for Last 24 Hours: Temp Pulse Resp BP Pulse Ox 99.0 F 91 H 18 155/74 H 96 06/04/20 08:24 06/04/20 08:24 06/04/20 08:24 06/04/20 08:24 06/04/20 08:24 Laboratory Results - last 24 hr 06/03/20 10:21: Troponin I < 0.01, NT-Pro-B Natriuret Pep 2400 H 06/04/20 06:25: WBC 12.1 H, RBC 3.48 L, Hgb 10.7 L, Hct 32.1 L, MCV 92.1, MCH 30.7, MCHC 33.3, RDW 12.2, Plt Count 199, MPV 8.2, Neut % (Auto) 89.0 H, Lymph % (Auto) 6.3 L, [place] % (Auto) 3.7, Eos % (Auto) 0.6, Baso % (Auto) 0.4, Neut # (Auto) 10.8 H, Lymph # (Auto) 0.8, [place] # (Auto) 0.5, Eos # (Auto) 0.1, Baso # (Auto) 0.1 06/04/20 06:25: Sodium 134 L, Potassium 3.9, Chloride 100, Carbon Dioxide 31 H, Anion Gap 6.9, BUN 12 D, Creatinine 0.70 D, Estimated Creat Clear 43, Estimated GFR 82, Est GFR ( Amer) 99 D, Glucose 121 H, Calcium 8.6 06/04/20 08:00: Urine Color Yellow, Urine Appearance Clear, Urine pH 5.5, Ur Specific [place] >= 1.030, Urine Protein Trace, Urine Glucose (UA) Negative, Urine Ketones Negative, Urine Blood 1+, Urine Nitrate Positive, Urine Bilirubin Negative, Urine Urobilinogen 0.2, Ur Leukocyte Esterase Trace, Urine RBC 5-10, Urine WBC 3-5, Ur Squamous Epith Cells 3-5, Urine Bacteria Trace I & O for Last 24 hours: Intake & Output 06/01/20 06/02/20 06/03/20 06/04/20 11:59 11:59 11:59 11:59 Intake Total 1000 / 1000 Output Total 350 / 350 1000 / 1000 Balance 650 / 650 -1000 / -1000 Weight 120 lb 122 lb 2 oz - Constitutional no acute distress Comments: Awakened for assessment. Appears comfortable. - *Routine Respiratory Exam Present: crackles (Right basilar crackles) - *Routine Cardiovascular Exam Present: RRR, murmur - *Routine Abdominal Exam Present: soft, normoactive bowel sounds. Absent: tenderness, distended - *Routine Extremities Exam Present: pulses intact, LAURENCE stockings Comments: Left leg is externally rotated. No edema. She has LAURENCE hose on. - *Routine Neurological Exam Present: alert, oriented X3 Assessment and Plan (1) Closed left hip fracture Status: Acute Qualifiers: Encounter type: initial encounter Qualified Code(s): S72.002A - Fracture of unspecified part of neck of left femur, initial encounter for closed fracture Category: Medical Code(s): S72.002A - Fracture of unspecified part of neck of left femur, initial encounter for closed fracture (2) Syncope Status: Acute Category: Medical Code(s): R55 - Syncope and collapse (3) Hypertension Status: Chronic Category: Medical Code(s): I10 - Essential (primary) hypertension (4) Varicosities of leg Status: Chronic Category: Medical Code(s): I83.90 - Asymptomatic varicose veins of unspecified lower extremity (5) Heart murmur Status: Acute Category: Medical Code(s): R01.1 - Cardiac murmur, unspecified (6) UTI (urinary tract infection) Status: Acute Category: Medical Code(s): N39.0 - Urinary tract infection, site not s
--- NOTE | 2020-06-04 09:00 | PC.NURSE ---
Pt reports resting well and denies any recent nausea and/ or vomiting. Left lower leg remains shortened and externally rotated. Pulses are continually strongly palpable bilat extremities / feet. Rene cath remains patent to bsd. Urine specimen collected from catheter per protocol and sent to lab for UA and Urine Culture. Still awaiting official clearance for surgery and/or time. Pain being well controlled with Dilaudid 1mg IV. Rocephin ordered r/t low grade temps..NS infusing at 100ml/hr.
--- NOTE | 2020-06-04 10:04 | PC.NURSE ---
Radiology at bs for portable chest xray
[2020-06-04 12:02] LABS: Lymphocytes % 9 % (10-50); Monocytes % 4 % (2-9); Neutrophils % 87 % (42-76); Platelet Estimate Normal; Total Cells Counted 100
[2020-06-04 12:03] LABS: RBC Morphology Normal
--- NOTE | 2020-06-04 12:05 | SW/DCPLANNER ---
Addendum entered by [facility] 06/10/20 09:57: Updated patient information and discharge summary has been faxed to Heather at [facility]. Patient discharged home on 06/08/20. Addendum entered by [facility] 06/07/20 13:10: Heather with [facility] has confirmed that services will begin tomorrow for this patient. Addendum entered by [facility] 06/07/20 09:34: Patient information has been faxed to [facility] for a BSC. Sarah has confirmed that patient information has been received and BSC will be delivered to patients home. I will also notify Heather with [facility] that patient will discharge today. Addendum entered by [facility] 06/06/20 14:43: I have spoke with Heather from [facility] to confirm information/order has been reviewed and services will start tomorrow for this patient. Since patients discharge order has been cancelled due to low blood pressure. I did notify Heather and stated that I would follow up with her tomorrow regarding status on this patient. Addendum entered by [facility] 06/06/20 11:36: Sarah with [facility] stated that wheelchair will be delivered to patients room today. Addendum entered by [facility] 06/06/20 10:38: I have spoke with patient and again today regarding discharge plans. Patient stated that she is going home and is not interested in placement at this time. Patients stated that he would be home with patient 23/11. I did have lengthy discussion with patient regarding safety and the need for placement and again placement was refused by patient. Patient stated that she is interested in home health (prefers [facility]), already has a walker and BSC at home. Patient is currently on O2 at [facility] and will need at home if ordered. Patient stated that she will also need a wheelchair when she is ready for discharge. I will order home health services, home O2 (if needed) and a wheelchair at time of discharge. Addendum entered by [facility] 06/05/20 12:59: I have spoke with this patient and her again this afternoon regarding discharge plans. PT did evaluate this patient this morning and recommended placement unless patient shows significant improvement. Patient and have both stated the plan for this patient is to return home with assistance from and home health. I did have extensive conversation with patient regarding the need for placement and safety measures at discharge. asked that I return after she works with therapy again tomorrow morning. I have explained that I will need a definite plan tomorrow morning: as of now plan is to discharge home with home health services. I will follow up with patient and tomorrow morning. Original Note: I have spoke with this patient regarding discharge plans after hip surgery. Patient stated that she resides at home with her and intends on returning home once medically stable. I explained options of discharging home with home health vs placement. I also explained to patient that discharge plans will be based on PT recommendations. Patient understood conversation and I will follow up with patient once she has surgery and is evaluated by PT.
--- NOTE | 2020-06-04 12:08 | PC.NURSE ---
Pt taken to surgery (pre-op) via bed and surgery staff x2.
--- NOTE | 2020-06-04 13:54 | HMH.ANESCL ---
[facility] Anesthesia Checklist - Patient Identification Patient Identification: Arm Band - Structural Data Admitted From: Inpatient Planned Operative Procedure/s: Left hip Intratrochenteric Nailing Consent for Planned Operative Procedure(s) Verified: Yes Verified Documents: Surgical Consent, History and Physical - NPO Status Verified Time NPO: 00:00 - Additional verifications Anesthesia Reactions: No - Airway Assessment C-Spine Mobility Assessed: Yes (mp2) TMJ Mobility Assessed: Yes Dentition: Good Dentition - Neurological Assessment Level of Consciousness: Awake, Alert - Anesthesia Plan Anesthesia Risk discussed: Yes Anesthesia Plan: Verified ASA Class: II Anesthesia Type: MAC w/Spinal (Risks/benefits of spinal/mac explained. Pt verbalizes understanding) [facility] History I have reviewed the patient's past medical history: Yes Medical History: Reports:: Hypertension Denies:: Cancer, Diabetes Mellitus Type 1, Diabetes Mellitus Type 2, Internal Pacemaker, MRSA *Have you ever received a pneumonia vaccine?: Yes *Have you received a flu vaccine this season?: Yes (FEB 2020) Anesthesia experience/problems:: nac Other Surgeries: Yes: Tubal Ligation. No: Pacemaker Amputation: No Fractures: Yes (PRESENT LEFT HIP) - *Social History Last grade of school completed: High school graduate Alcohol Intake: never Substance Use Type: denies use *Occupational Status:: other (Housewife) Housing: house Household Members: spouse *Travel in the last 8 weeks: None Family Hx:: Diabetes, Heart Attack, Hypertension, Stroke
--- NOTE | 2020-06-04 14:59 | XR_ITS ---
PROCEDURE: XR HIP LT 2-3V W/PELVIS CLINICAL INDICATION: LEFT HIP NAILING IN OR COMPARISON: No exams were available for comparison FINDINGS: Status post left hip nailing. Multiple C-arm images submitted showing placement 2 decompression screw stabilized by short intramedullary anuj with good alignment. IMPRESSION: Good alignment status post ORIF left hip Dictated by: Vicente Werner MD 06/05/2020 05:38 Vicente Werner MD in [place] 06/05/2020 05:38
--- NOTE | 2020-06-04 15:20 | XR_ITS ---
PROCEDURE: XR HIP LT 2-3V W/PELVIS CLINICAL INDICATION: s/p left hip nailing Follow-up surgery COMPARISON: No exams were available for comparison FINDINGS: S/p ORIF left hip. 2 gamma nails with short intramedullary anuj is present stabilizing the fracture at the base of the femoral neck. There is good alignment. Postsurgical gas and skin clips are present. There is a Rene catheter present. IMPRESSION: Good alignment status post ORIF left hip Dictated by: Vicente Werner MD 06/04/2020 16:58 Vicente Werner MD in [facility] 06/04/2020 16:58
--- NOTE | 2020-06-04 15:21 | P.PN_ITS ---
[facility] Anesthesia Record Part I Intake, IV Amount: 1,100 Estimated blood loss (mL): 150 Urine output (mL): 350 Blood Pressure: 159/63 SaO2: 92 Pulse Rate: 95 Respiratory Rate: 16 Temperature: 99.1 F Patient is:: Drowsy, Stable Stable to PACU at:: 15:15
--- NOTE | 2020-06-04 15:58 | P.PN_ITS ---
Subjective Date: 06/04/20 Time: 16:00 Principal diagnosis: L hip fx Interval history: The patient underwent IMN L femur this afternoon without complication. EBL 150cc. PN: Obj Ex Vital signs: Temp Pulse Resp BP Pulse Ox 98.1 F 96 H 15 158/85 H 95 06/04/20 15:35 06/04/20 15:35 06/04/20 15:35 06/04/20 15:35 06/04/20 15:35 - Constitutional no acute distress - Routine HEENT Exam Head: Present: normocephalic Eye: Present: EOMI ENT: Present: mucous membranes moist - Routine Neck Exam Present: trachea midline - Routine Respiratory Exam Absent: respiratory distress - Routine Cardiovascular Exam Present: RRR - Routine Abdominal Exam Present: soft - Routine Extremities Exam Comments: surgical dressings intact L hip motor/sensory impaired below waist due to spinal anesthetic L calf soft, compressible palpable pedal pulses LLE, foot pink/warm - Routine Skin Exam Present: warm - Urinary Catheter Management Roberts Cath placed during this visit: no Progress Note: A&P (1) Closed left hip fracture Status: Acute (2) Syncope Status: Acute (3) Hypertension Status: Chronic (4) Varicosities of leg Status: Chronic (5) Heart murmur Status: Acute (6) UTI (urinary tract infection) Status: Acute Assessment and Plan for All Diagnoses:: 75yo F POD 0 s/p IMN L femur for IT fx -- WBAT LLE, out of bed with assist -- PT/OT to eval/treat -- d/c roberts after spinal worn off/tomorrow morning -- ice L hip frequently -- DVT prophy: lovenox to start tomorrow -- reinforce dressings for any drainage -- neurovascular checks each shift -- pain control: oral [place] + IV morphine for breakthrough -- encourage IS 10x/hr while awake -- finish 24hr prophy antibiotics -- regular diet -- dispo planning: care management/PT to see
--- NOTE | 2020-06-04 15:58 | HMH.OPNOTE ---
Date of procedure: 06/04/20 Pre-op Diagnosis:: intertrochanteric fracture L femur Post-op Diagnosis:: intertrochanteric fracture L femur Procedure performed:: intramedullary nail L femur Surgeon:: Candice Orozco MD Landing Scaler(s):: Precious Cottrell TUBE WINDER:: Dylan Root Anesthesia: MAC, spinal Estimated blood loss (mL): 150 Clinical Note:: 75-year-old female admitted the evening of 06/02/20 after a fall at home. The patient is unsure what happened to cause the fall, noting that she felt funny and blacked out prior to falling. Her was behind her and reported her tripping, but the patient does not recall this. She recalls feeling odd before the fall but does not recall any preceding chest pain, shortness of breath or dizziness. After the fall she was unable to bear weight on the left lower extremity, with severe pain in the left hip. No recent fevers or chills, no chest pain or shortness of breath reported, no recent illnesses or exposures to sick individuals. CT scan of the head and C-spine in the emergency department were negative. She currently complains only of left hip pain, no back pain, no pain, numbness or tingling radiating down the right lower extremity. She has never broken a bone before and has never had surgery on the left hip. Medical history significant for hypertension, denies baseline medication usage. X-ray of the L hip revealed a low/basicervical femoral neck fx with intertrochanteric extension (fx line extends to lesser trochanter). Conversely, this could be described as an intertrochanteric fracture that extends superiorly to the base of the head/heck. I discussed the nature of the patient's injury with her, along with the risks/benefits of both operative and nonoperative treatments. I discussed the risks of malunion, nonunion, lower extremity malrotation and persistent pain/limp, decubitus ulcers, DVT/PE, pneumonia, and other medical complications of prolonged immobilization that would be at risk with nonoperative treatment. I also discussed the risks of surgical treatment, including but not limited to: bleeding, infection, neurovascular damage, fracture propagation changing the surgical plan, hardware failure, nonunion, malunion, persistent pain/limp and/or disability despite surgical intervention, need for later revision surgery or hardware removal, and the risks of anesthesia including heart attack, stroke and even . The patient vocalized understanding of the above risks and informed consent was obtained. After cardiology consultation and echocardiogram, the patient was cleared for surgery. Operative findings:: [employer] antegrade femoral IMN Nail = 11.5 x 200mm, 125 degree Compression/Lag screws = 85 / 80mm Distal interlocking screw (1) = 5.0 x 25mm Operative note:: The patient was identified in preoperative holding and the L hip signed by myself. Consent was reviewed with the patient and all questions answered. She was seen by TUBE WINDER and the decision made to perform spinal anesthesia. The patient was then taken to the operating room where 1 gram cefazolin was administered intravenously and spinal anesthsia administered. The patient was then transferred to the fracture table. The perineum was snugged up to the perineal post and BLE secured on the table. The L leg was secured to the foot plate of the fracture table and the R leg placed in an extended/abducted position out of the way of c-arm and padded well. Timeout was performed, identifying the correct patient, correct procedure and correct site. Next the L hip fracture was visualized under fluoro and closed reduction performed using the fracture table and a combination of hip adduction, internal rotation and longitudinal traction. The L intertrochanteric femur fracture was reduced into acceptable alignment and then the hip prepped and draped in the usual sterile fashion for a femoral antegrade intramedullary nail procedure. The procedure was begun by using a
--- NOTE | 2020-06-04 16:10 | PC.NURSE ---
Pt to floor from PACU via bed and surgery staff x2.
--- NOTE | 2020-06-04 16:57 | HMH.ANESII ---
[facility] Anesthesia Record Part II Discharge Time: 16:05 Destination: Medical Surgical Department PACU nurse assessment reviewed?: Yes Patient Condition:: Good Anesthesia Complications:: None Swallowing reflex intact?: Yes Cyanosis?: No Blood Pressure: 148/74 Pulse Rate: 92 Temperature: 97.6 F Mental Status: Alert & Oriented Pain level:: 4 Nausea and/or vomitting:: None Intake, IV Amount: 0
[2020-06-05] VITALS (7 sets, daily range): BP systolic 120–158; BP diastolic 51–87; PULSE 76–101; RESP 16–18; TEMP 37.1–37.6; O2SAT 92–96
--- NOTE | 2020-06-05 04:00 | PC.NURSE ---
Pt has slept throughout this shift, Pt A&O x4, BLT lung sounds with crackles, Bowel sounds present in all 4 quadrants. IV infusing well. Pt with 2L NC, Pt medicated per MAR for pain, Pt had a slight fever, pt denies headache, SOA, or N/V, Rene draining pale yellow urine
[2020-06-05 06:59] LABS: Basophils % 0.4 % (0.1-2.0); Eosinophils % 0.6 % (0.1-12.0); Hematocrit 28.2 % (37.0-47.0); Hemoglobin 9.3 g/dL (12.2-16.2); Lymphocytes # 0.7 K/mm3 (0.7-4.5); Lymphocytes % 9.8 % (10-50); Mean Corpuscular HGB Conc 33.1 g/dL (31.8-35.4); Mean Corpuscular Hemoglobin 30.9 pg (27.0-31.2); Mean Corpuscular Volume 93.3 fl (81-99); Mean Platelet Volume 8.9 fl (7.4-10.4); Monocytes # 0.3 K/mm3 (0.1-1.0); Monocytes % 4.7 % (1.7-9.3); Neutrophils # 5.9 K/mm3 (1.8-7.8); Neutrophils % 84.5 % (37.0-80.0); Platelet Count 178 K/mm3 (142-424); Red Blood Count 3.02 M/mm3 (4.20-5.40); Red Cell Distribution Width 12.9 % (11.5-17.5); White Blood Count 6.9 K/mm3 (4.8-10.8)
[2020-06-05 07:09] LABS: Chloride 102 mmol/L (98-107); Potassium 3.8 mmoL/L (3.5-5.1); Sodium 133 mmol/L (136-145)
[2020-06-05 07:11] LABS: Blood Urea Nitrogen 9 mg/dl (7-17); Creatinine Clearance Estimated 43 mL/min (50-200); Estimated Glomerular Filt Rate 82 ml/min (>60); GFR (African American) 99 ML/MIN (>60)
[2020-06-05 07:12] LABS: Alanine Aminotransferase 12 U/L (12-78); Albumin Level 2.5 g/dl (3.5-5.0); Albumin/Globulin Ratio 0.9 (1.1-1.8); Alkaline Phosphatase 65 U/L (38-126); Anion Gap 2.8 mEq/L (5-15); Aspartate Amino Transferase 32 U/L (14-36); Bilirubin,Total 0.5 mg/dl (0.2-1.3); Calcium 7.8 mg/dl (8.4-10.2); Carbon Dioxide 32 mmol/L (22.0-30.0); Globulin 2.8 g/dL (1.3-3.2); Glucose 118 mg/dl (74-100); Total Protein,Serum 5.3 g/dl (6.3-8.2)
--- NOTE | 2020-06-05 07:41 | HMH.ACPN2 ---
<Suly Stewart - Last Filed: 06/05/20 07:41> Internal Medicine - PN: Subj *Date: 06/05/20 *Time: 07:41 Interval history: Patient thinks she is doing okay this a.m. Her stayed with her throughout the night and awakened her to use her incentive spirometer every 2 hours. She is going to try and eat some breakfast this morning. She denies nausea. She denies chest pain and shortness of breath. She states she has no cough. She continues with Rene catheter. Surgery yesterday, intramedullary nail of the left femur but per Dr. Vo.The procedure went well. She had no complications. She is now postop day 1. Chest x-ray yesterday showed a right lower lobe pneumonia. Blood cultures and urine culture are pending. Did have a low-grade fever early this a.m. of 99.1. Patient had Laboratory data this a.m. show a normal white blood cell count today at 6900. Blood chemistries with a sodium of 133 and potassium of 3.8; BUN is 9 and creatinine is 0.7. Exam Vital signs and Labs for Last 24 Hours: Temp Pulse Resp BP Pulse Ox 99.1 F 101 H 18 138/66 92 L 06/05/20 05:03 06/05/20 05:03 06/05/20 05:03 06/05/20 05:03 06/05/20 05:03 Laboratory Results - last 24 hr 06/04/20 06:25: Total Counted 100, Neutrophils % (Manual) 87 H, Lymphocytes % (Manual) 9 L, Monocytes % (Manual) 4, Platelet Estimate Normal, RBC Morphology Normal 06/04/20 08:00: Urine Color Yellow, Urine Appearance Clear, Urine pH 5.5, Ur Specific [place] >= 1.030, Urine Protein Trace, Urine Glucose (UA) Negative, Urine Ketones Negative, Urine Blood 1+, Urine Nitrate Positive, Urine Bilirubin Negative, Urine Urobilinogen 0.2, Ur Leukocyte Esterase Trace, Urine RBC 5-10, Urine WBC 3-5, Ur Squamous Epith Cells 3-5, Urine Bacteria Trace 06/05/20 06:45: WBC 6.9 D, RBC 3.02 L, Hgb 9.3 L, Hct 28.2 L, MCV 93.3, MCH 30.9, MCHC 33.1, RDW 12.9, Plt Count 178, MPV 8.9, Neut % (Auto) 84.5 H, Lymph % (Auto) 9.8 L, [place] % (Auto) 4.7, Eos % (Auto) 0.6, Baso % (Auto) 0.4, Neut # (Auto) 5.9, Lymph # (Auto) 0.7, [place] # (Auto) 0.3, Eos # (Auto) 0.0, Baso # (Auto) 0.0 06/05/20 06:45: Sodium 133 L, Potassium 3.8, Chloride 102, Carbon Dioxide 32 H, Anion Gap 2.8 L, BUN 9, Creatinine 0.70, Estimated Creat Clear 43, Estimated GFR 82, Est GFR ( Amer) 99, Glucose 118 H, Calcium 7.8 L, Total Bilirubin 0.5, AST 32, ALT 12, Alkaline Phosphatase 65, Total Protein 5.3 L, Albumin 2.5 L, Globulin 2.8, Albumin/Globulin Ratio 0.9 L I & O for Last 24 hours: Intake & Output 06/02/20 06/03/20 06/04/20 06/05/20 11:59 11:59 11:59 11:59 Intake Total 1000 / 1000 1100 / 1100 Output Total 350 / 350 1000 / 1000 1700 / 1700 Balance 650 / 650 -1000 / -1000 -600 / -600 Weight 120 lb 122 lb 2 oz - Constitutional no acute distress Comments: Sitting up in the bed awaiting breakfast - *Routine Respiratory Exam Present: crackles (Right basilar) - *Routine Cardiovascular Exam Present: RRR - *Routine Abdominal Exam Present: soft, normoactive bowel sounds. Absent: tenderness - *Routine Extremities Exam Present: pulses intact. Absent: edema, calf tenderness Comments: Left hip dressing clean and dry. Skills on right lower extremity. - *Routine Neurological Exam Present: alert, oriented X3 Assessment and Plan (1) Closed left hip fracture Status: Acute Qualifiers: Encounter type: initial encounter Qualified Code(s): S72.002A - Fracture of unspecified part of neck of left femur, initial encounter for closed fracture Category: Medical Code(s): S72.002A - Fracture of unspecified part of neck of left femur, initial encounter for closed fracture (2) Syncope Status: Acute Category: Medical Code(s): R55 - Syncope and collapse (3) Hypertension Status: Chronic Category: Medical Code(s): I10 - Essential (primary) hypertension (4) Varicosities of leg Status: Chronic Category: Medical Code(s): I83.90 - Asymptomatic varicose veins of unspecified low
--- NOTE | 2020-06-05 09:51 | PC.NURSE ---
PT & OT at bs with pt.
--- NOTE | 2020-06-05 10:23 | HMH.PTEV ---
Physical Therapy Evaluation Rehab PT IP Evaluation Start: 06/04/20 15:55 Freq: ONCE Status: Active Protocol: Document 06/05/20 10:15 JACINTO (Rec: 06/05/20 10:23 JACINTO [id number]) Subjective/History History History Nathalie is a 75-year-old female with a history of hypertension , and varicose veins, who was brought by her to [facility] emergency room for evaluation after a fall. She states that she felt funny and then the next thing she remembers sitting in a chair on the porch. Her states per ER report that she tripped and fell. She does not recall this. She states she just felt funny but denies having any chest pain or shortness of breath, palpitations and dizziness. She does not feel that she injured any other part of her body. After the fall she was lifted to the chair by her and EMS was called. They helped to place her in their truck to be brought to the emergency room . She was unable to bear weight. Subjective Subjective Pt reports pain in LLE w/ mvmnt and fear of moving - pt reports c/o nausea and feeling like passing out after activity Rehab PT IP Eval Objective Appearance Patient Behavior Appropriate,Cooperative Patient Orientation Person,Place,Time,Situation Difficulty following instructions none Speech Pattern Appropriate Ambulation Patient Able to Ambulate Yes Ambulation Observation IP General Gait Pattern Observation Antalgic Gait,Shuffling Step, Decrease Weight Bear (L), Decrease Stride Lngth (R), Decrease Stride Lngth (L) Ambulation Distance (feet) 2 Ambulation Assistive Device Rolling Walker Ambulation Ability Maximum x 1 (75% assist) Balance Ability to Arise Able, uses arms to help Sitting Balance Steady, safe Standing Balance
--- NOTE | 2020-06-05 10:29 | HMH.OTEV ---
OT Inpatient Evaluation Rehab OT IP Evaluation Start: 06/04/20 15:55 Freq: ONCE Status: Complete Protocol: Document 06/05/20 10:20 [facility] (Rec: 06/05/20 10:28 [facility] [id number]) Rehab OT IP Assessment Subjective History Pt oriented x 3 on arrival. Pt agreeable to engage in therapy evaluation. Pt was adm via ED on 06/02/20 due to fall at home and L hip pain. Pt was found to have L hip fx. Pt has a past medical history of HTN. Pt had a L intramedullary nail to L femur on 06/04/20. Pt reports prior to her fall she lived at home with her and was independent with all ADLs and IADLs. Pt did not require AE during ambulation. Subjective I am just scared. Objective Patient Orientation Person,Place,Birthday Upper Extremity Gross ROM WFL Bed Mobility bed mobility-scooting,bed mobility - supine/sit,bed mobility - rolling Assist Level Moderate x 2 (50% assist) Transfer Training Sit/Stand/Step Transfer Assist Level Moderate x 2 (50% assist) Rehab OT IP prob,goals,plan Problems Date of Evaluation: 06/05/20 OT IP Problems Bed Mobility,Transfers,Gait, Balance,Self care,Safety Rehab Potential Rehab Potential Good Equipment Needs Assistive Devices Rolling / Wheeled Walker Plan OT intervention Plan Bed Mobility,Transfers,Gait, Balance,Self care,Safety OT Plan Frequency Daily Duration LOS Discharge Goals Bed Mobility Ability Assistance x1 Sit to Stand Chair Transfer Ability Minimal x 1 (25% assist) Chair Transfer Ability Minimal x 1 (25% assist) Chair Transfer Technique Sit to/from Ambulatory Chair Transfer Assistive Devices Rolling Walker Self care skills uses utensils to feed self Feeding Ability Independent Lower Body Dressing Ability Assistance X1 Upper Body Dressing Ability Standby Assistance Bathing Ability Assistance x1 Performing Toilet Hygiene Ability Standby Assistance Overall Commode/Toilet Transfer Ability Assistance x1 Commode/Toilet Transfer Technique Sit to/from Ambulatory Discharge Plan OT Discharge Plan Pt would benefit most from
--- NOTE | 2020-06-05 11:32 | P.PN_ITS ---
Subjective Date: 06/05/20 Time: 10:30 Principal diagnosis: L hip fx Interval history: The patient is doing well this morning, though she reports nausea and pain in the L hip. She was able to participate in physical therapy but needed a lot of assistance and PT feels she is not safe for d/c home at this time. PN: Obj Ex Vital signs: Temp Pulse Resp BP Pulse Ox 99.1 F 101 H 18 138/66 92 L 06/05/20 05:03 06/05/20 05:03 06/05/20 05:03 06/05/20 05:03 06/05/20 05:03 - Constitutional no acute distress - Routine HEENT Exam Head: Present: normocephalic Eye: Present: EOMI ENT: Present: mucous membranes moist - Routine Neck Exam Present: trachea midline - Routine Respiratory Exam Absent: respiratory distress, wheezes - Routine Cardiovascular Exam Present: RRR - Routine Abdominal Exam Present: soft. Absent: tenderness - Routine Extremities Exam Comments: L hip dressings c/d/i, no strikethrough +DF/PF/EHL LLE SILT distally LLE in all distributions L calf soft, non-tender; negative Hom[place] palpable pedal pulses LLE, foot pink/warm mild tenderness to palpation L hip - Routine Skin Exam Present: warm - Routine Neurological Exam Present: alert, oriented X3, moving all extremities, normal tone, vision grossly intact, hearing grossly intact, normal speech. Absent: sensory deficit, motor deficit, altered mental status - Routine Psychiatric Exam Present: normal affect - Urinary Catheter Management Roberts Cath placed during this visit: no Progress Note: A&P (1) Closed left hip fracture Status: Acute (2) Syncope Status: Acute (3) Hypertension Status: Chronic (4) Varicosities of leg Status: Chronic (5) Heart murmur Status: Acute (6) UTI (urinary tract infection) Status: Acute (7) Pneumonia Status: Acute Assessment and Plan for All Diagnoses:: 75yo F POD 1 s/p IMN L femur for IT fx -- WBAT LLE, out of bed with assist -- PT/OT to continue while admitted -- d/c roberts now -- ice L hip frequently -- DVT prophy: lovenox to start today; continue x1 month -- reinforce dressings for any drainage -- neurovascular checks each shift -- pain control: oral [place] + IV morphine for breakthrough -- encourage IS 10x/hr while awake -- finish 24hr prophy antibiotics today -- dispo planning: anticipate d/c to SNF; ok to d/c from ortho standpoint whenever medically appropriate per PCP. D/c instructions and Rx for pain medications/lovenox placed on patient's chart today. Follow-up with Dr. Orozco 06/17/20.
--- NOTE | 2020-06-05 12:30 | PC.NURSE ---
Case Management (Suha) at to see pt.
--- NOTE | 2020-06-05 13:11 | PC.NURSE ---
PT/OT BACK AT BS TO SEE PT.
--- NOTE | 2020-06-05 21:15 | PC.NURSE ---
PT LAYING IN BED,HAD HER USE HER INCENTIVE SPIROMETER AND WAS ABLE TO ACHIEVE 1500. SAID HE HAS HER USING IT(INCENTIVE SPIROMETER WHEN SHE IS AWAKE.HE SAID SOMETHING ABOUT GOING HOME AND COMING BACK IN AM,ASKED IF HE COULD GET BACK IN FRONT DOORS AROUND 0700,HE WANTED TO HELP HER WITH HER BREAKFAST,TOLD HIM YES HE COULD ....................................................................................................................................................................
--- NOTE | 2020-06-05 23:20 | PC.NURSE ---
UPON ENTERING ROOM PT WAS AWAKE,HAD HER USE HER INCENTIVE SPIROMETER AND SHE WAS ABLE TO ACHIEVE 1500,PT B/P 136/59,P-76,R-16,T-99.3,SAT LEVEL 91-92% ON 2 LITERS OF OXYGEN,HAD PT TAKE SOME DEEP BREATHES AND SAT LEVEAL WENT TO 96%,EMPTIED 800ML ON CLEAR YELLOW URINE FROM BAKER CATH.PT DENIES ANY PAIN AT THIS TIME.ASKED IF SHE WANTED HER LIGHTS OUT AND SHE SAID YES..LIGHTS OFF AND WILL CONTINUE TO MONITOR
[2020-06-06] VITALS (14 sets, daily range): BP systolic 85–150; BP diastolic 35–65; PULSE 65–79; RESP 18–22; TEMP 36.5–37.1; O2SAT 91–98
--- NOTE | 2020-06-06 03:39 | PC.NURSE ---
UPON ENTERING ROOM,PT WAS LAYING IN BED WITH HER EYES OPEN,REPORTS SHE HAS BEEN AWAKE FOR A LITTLE BIT,DENIES ANY PAIN AT THIS TIME,LUNGS CLEAR THROUGHOUT,RESP.EVEN AND UNLABORED,SAT.LEVEL 89-92%,HAD PT TAKE SOME DEEP BREATHES WITH 2LITERS OF OXYGEN AND HER SAT.MANJULA TO 96%.HAD PT USE INCENTIVE AND WAS ABLE TO ACHIEVE 1500.BAKER CATH PATENT AND DRAINING CLEAR YELLOW URINE,PEDAL PULSES BILATERALLY,NO DRAINAGE TO LEFT HIP DRESSING,ASKED IF PT WOULD LIKE TO GET CLEANED UP SOME AROUND [id number] AND SHE SAID YES,WILL CONTINUE TO MONITOR.PT AFIBRILE THIS MORNING 98.7
--- NOTE | 2020-06-06 08:05 | PC.NURSE ---
DR. JAMESON AT BEDSIDE CHANGING DRESSING. SCANT AMOUNT OF BLEEDING TO TOP INCISION. PUT XEROFORM, 4X4 AND TEGADERM ON INCISION. PT TOLERATED THIS WELL.
--- NOTE | 2020-06-06 08:30 | PC.NURSE ---
SATS IN 98-99%- WEANED TO 1 L PER NASAL CANNULA. WILL KEEP A CLOSE EYE ON THIS
--- NOTE | 2020-06-06 08:43 | HMH.ACPN2 ---
<Cierra Dee - Last Filed: 06/06/20 08:43> Internal Medicine - PN: Subj *Date: 06/06/20 *Time: 08:43 Interval history: Patient is doing well after ORIF of her left hip. She states she worked with physical therapy yesterday and was able to walk slowly. She has minimal pain this morning and slept well and is eating a good breakfast. Exam Vital signs and Labs for Last 24 Hours: Temp Pulse Resp BP Pulse Ox 98.7 F 75 18 126/53 L 96 06/06/20 03:15 06/06/20 03:15 06/06/20 03:15 06/06/20 03:15 06/06/20 03:15 I & O for Last 24 hours: Intake & Output 06/03/20 06/04/20 06/05/20 06/06/20 11:59 11:59 11:59 11:59 Intake Total 1000 / 1000 1100 / 1100 Output Total 350 / 350 1000 / 1000 1700 / 1700 2300 / 2300 Balance 650 / 650 -1000 / -1000 -600 / -600 -2300 / -2300 Weight 120 lb 122 lb 2 oz Microbiology Reports for the Last 24 Hours: Microbiology 06/04/20 08:19 Urine,Catheterized Urine Culture - Preliminary Gram Negative Rods 06/03/20 21:12 Blood Blood Culture - Preliminary NO GROWTH AFTER 48 HOURS 06/03/20 21:15 Blood Blood Culture - Preliminary NO GROWTH AFTER 48 HOURS - Constitutional no acute distress - *Routine Respiratory Exam Present: CTA bilaterally - *Routine Cardiovascular Exam Present: RRR - *Routine Abdominal Exam Present: soft (We will think probably to his), normoactive bowel sounds. Absent: tenderness - *Routine Extremities Exam Absent: cyanosis, clubbing, edema Comments: dressing in place on left hip - *Routine Skin Exam Present: warm. Absent: rash - *Routine Neurological Exam Present: alert, oriented X3 Assessment and Plan (1) Closed left hip fracture Status: Acute Qualifiers: Encounter type: initial encounter Qualified Code(s): S72.002A - Fracture of unspecified part of neck of left femur, initial encounter for closed fracture Category: Medical Code(s): S72.002A - Fracture of unspecified part of neck of left femur, initial encounter for closed fracture (2) Syncope Status: Acute Category: Medical Code(s): R55 - Syncope and collapse (3) Hypertension Status: Chronic Category: Medical Code(s): I10 - Essential (primary) hypertension (4) Varicosities of leg Status: Chronic Category: Medical Code(s): I83.90 - Asymptomatic varicose veins of unspecified lower extremity (5) Heart murmur Status: Acute Category: Medical Code(s): R01.1 - Cardiac murmur, unspecified (6) UTI (urinary tract infection) Status: Acute Category: Medical Code(s): N39.0 - Urinary tract infection, site not specified (7) Pneumonia Status: Acute Category: Medical Code(s): J18.9 - Pneumonia, unspecified organism - Assessment and plan all Dx Assessment and Plan for all problems:: We will continue physical therapy. Ortho to follow. <Rao Salazar - Last Filed: 06/06/20 17:18> Internal Medicine - PN: Subj *Date: 06/06/20 *Time: 17:17 Exam Vital signs and Labs for Last 24 Hours: Temp Pulse Resp BP Pulse Ox 97.7 F 71 22 113/47 L 95 06/06/20 16:40 06/06/20 16:40 06/06/20 16:40 06/06/20 16:40 06/06/20 16:40 I & O for Last 24 hours: Intake & Output 06/04/20 06/05/20 06/06/20 06/07/20 11:59 11:59 11:59 11:59 Intake Total 1100 / 1100 Output Total 1000 / 1000 1700 / 1700 2600 / 2600 400 / 400 Balance -1000 / -1000 -600 / -600 -2600 / -2600 -400 / -400 Weight 122 lb 2 oz Microbiology Reports for the Last 24 Hours: Microbiology 06/04/20 08:19 Urine,Catheterized Urine Culture - Preliminary Gram Negative Rods 06/03/20 21:12 Blood Blood Culture - Preliminary NO GROWTH AFTER 48 HOURS 06/03/20 21:15 Blood Blood Culture - Preliminary NO GROWTH AFTER 48 HOURS Assessment and Plan (
--- NOTE | 2020-06-06 08:50 | HMH.ORTHPN ---
Subjective Date: 06/06/20 Time: 08:00 Principal diagnosis: L hip fx Interval history: Patient is doing well this morning and reports minimal pain in the left hip. She said that yesterday's afternoon physical therapy session went much better than the morning did. She is still having some difficulty with mobility and it has been recommended that she transfer to a nursing facility for rehab. The patient is adamant she return home with her . PN: Obj Ex Vital signs: Temp Pulse Resp BP Pulse Ox 98.7 F 75 18 126/53 L 96 06/06/20 03:15 06/06/20 03:15 06/06/20 03:15 06/06/20 03:15 06/06/20 03:15 - Constitutional no acute distress - Routine HEENT Exam Head: Present: normocephalic Eye: Present: EOMI ENT: Present: mucous membranes moist - Routine Neck Exam Present: trachea midline - Routine Respiratory Exam Absent: respiratory distress, wheezes - Routine Cardiovascular Exam Present: RRR - Routine Abdominal Exam Present: soft. Absent: tenderness - Routine Extremities Exam Comments: L hip dressings c/d/i, no strikethrough +DF/PF/EHL LLE SILT distally LLE in all distributions L calf soft, non-tender; negative Homans palpable pedal pulses LLE, foot pink/warm mild tenderness to palpation L hip - Routine Skin Exam Present: warm - Routine Neurological Exam Present: alert, oriented X3, moving all extremities, normal tone, vision grossly intact, hearing grossly intact, normal speech. Absent: sensory deficit, motor deficit, altered mental status - Routine Psychiatric Exam Present: normal affect - Urinary Catheter Management Rene Cath placed during this visit: no Progress Note: A&P (1) Closed left hip fracture Status: Acute (2) Syncope Status: Acute (3) Hypertension Status: Chronic (4) Varicosities of leg Status: Chronic (5) Heart murmur Status: Acute (6) UTI (urinary tract infection) Status: Acute (7) Pneumonia Status: Acute Assessment and Plan for All Diagnoses:: 75yo F POD 2 s/p IMN L femur for IT fx -- WBAT LLE, out of bed with assist -- PT/OT to continue while admitted -- ice L hip frequently -- DVT prophy: lovenox, continue x1 month -- dressings changed today -- neurovascular checks each shift -- pain control: oral Symsonia + IV morphine for breakthrough -- encourage IS 10x/hr while awake -- dispo planning: anticipate d/c to SNF; ok to d/c from ortho standpoint whenever medically appropriate per PCP. D/c instructions and Rx for pain medications/lovenox placed on patient's chart today. Follow-up with Dr. Orozco 06/17/20.
--- NOTE | 2020-06-06 10:23 | PC.NURSE ---
Kathleen MONTELONGO CASE MANAGEMENT AT BEDSIDE.
--- NOTE | 2020-06-06 10:45 | PC.NURSE ---
PT. WILL NEED A WHEELCHAIR RATHER THAN CANE OR WALKER DO TO GAIT AND MOBILITY ISSUES.
--- NOTE | 2020-06-06 10:55 | PC.NURSE ---
PATIENT STATES SHE WANTS TO GET BACK IN BED REPORTS THAT SHE FEELS FUNNY. VITALS OBTAINED- BP 86/35, 65 HEART RATE, 95% ON 1 LITER 1058- 85/37, HEART RATE 68. PATIENT HELPED BACK TO BED- VERY WEAK X2 ASSIST. 1100 PATIENT LAID BACK IN BED AND POSITIONED. BP 132/60, HEART RATE 71 AND OXYGEN 88%- BUMPED UP TO 1.5 LITERS. PT REPORTS HER NAUSEA IS BETTER. 1105 137/65 BLOOD PRESSURE NOW. PT REPORTS FEELING BETTER, AND THAT SHE IS GOING TO TAKE A NAP.
--- NOTE | 2020-06-06 11:15 | PC.NURSE ---
CALLED DR. DAY'S OFFICE- REPORTED TO TRANSVERSE ABDOMINAL MUSCLE SURGEON ON PATIENTS EPISODE AND SHE STATES SHE WILL LET HIM KNOW.
--- NOTE | 2020-06-06 14:01 | PC.NURSE ---
DR. DAY CALLED AND UPDATED ON PATIENT. STAFF HAD NOT TOLD DR. DAY YET ABOUT BLOOD PRESSURE DROPPING. STATES TO PUT PATIENT ON MATTRESS FINISHER AND TO CANCEL D/C ORDER... ORDERS R/V
--- NOTE | 2020-06-06 16:00 | PC.NURSE ---
no changes from previous reassessment. patient has been up to the chair throughout the day. a/ox4. patient is very weak today and is still on oxygen- 1 l per nc. patient has been able to urinate once x2 assist to the bathroom. patient takes a lot of encouragement to get to walking with walker. lungs remain clear and bowels active x4. reports passing gas, but no bm yet. dressing to left hip c/d/i. ice pack applied prn per order. pt had another episode earlier of nausea and reported feeling funny. vitals obtained and all WNL. pulses 2+ and cap refill <3 seconds. patient reported she was short of breath while ambulating earlier. encouraged frequent coughing and use of incentive marcia. remains at bedside. no needs. call light within reach.
--- NOTE | 2020-06-06 17:34 | PC.NURSE ---
DR. DAY CALLED TO CHECK ON PATIENT. REPORT GIVEN. STATES TO JUST WATCH PATIENT OVER NIGHT. STATES HE D/C HER BP MEDS TONIGHT. R/V
--- NOTE | 2020-06-06 20:30 | PC.NURSE ---
PT ASSESSMENT DONE AT THIS TIME,LUNGS CLEAR TO ASCULTATE THROUGHTOUT,RESP.EVEN AND UNLABORED.SAT.LEVEL ON 1 LITER OXYGEN 94%.NORMAL BOWEL SOUNDS X4 QUADS,NO DRAINAGE TO LEFT HIP DRESSING.PT HAS BEEN UP WITH 2 PERSON ASSIST TO BSC.SLOW TO MOVE,VOIDED AND HAD A BOWEL MOVEMENT,AFEBRILE ,WILL CONTINUE TO MONITOR
--- NOTE | 2020-06-06 20:35 | PC.NURSE ---
2 PERSON ASSIST TO BSC,PT VOIDED 300ML OF DARK YELLOW URINE,SHE HAD A MODERATE SOFT BROWN BOWEL MOVEMENT.VERY LITTLE HELP WITH GETING IN BED.PT DENIES ANY PAIN,JUST SORENESS,OFFERED A LEAST SOME TYLENOL AND PT AGREED TO TAKE SOME.ICE PACK APPLIED TO LEFT HIP AT THIS TIME
[2020-06-07] VITALS (33 sets, daily range): BP systolic 75–152; BP diastolic 47–85; PULSE 58–97; RESP 16–20; TEMP 36.6–37.1; O2SAT 84–100
--- NOTE | 2020-06-07 | PC.NURSE ---
PT WAS SLEEPING,EASILY AROUSED,V/S STABLE,DENIES ANY NEED FOR PAIN MEDICNE AT THIS TIME.,HAD PT USE INCENTIVE SPIROMETER AND SHE WAS ABLE TO ACHIEVE 1500,WILL CONTINUE TO MONITOR
--- NOTE | 2020-06-07 03:49 | PC.NURSE ---
PT DID A LITTLE BETTER THIS MORNING WITH GETTING UP.ASSISTED TO BSC WITH 2PEOPLE AT HER SIDE.VOIDED 500ML CLEAR YELLOW URINE.B/P 151/59 AFTER GETTING UP AND HAVING PAIN,MEDICATED WITH ANOTHER NORCO 5MG/325MG,TOLD PT SHE WAS MOVING A LITTLE BETTER WHEN SHE TAKES A LITTLE SOMETHING FOR PAIN,PT V/U.LUNGS CLEAR,RESP.EVEN AND UNLABORED.SAT.LEVEL 97% ON 1 LITER OXYGEN,AFEBRILE .NO DRAINAGE TO LEFT HIP DRESSING.WILL CONTINUE TO MONITOR
--- NOTE | 2020-06-07 06:37 | PC.NURSE ---
LAB HERE TO DRAW BLOOD
[2020-06-07 07:05] LABS: Basophils % 0.5 % (0.1-2.0); Eosinophils # 0.1 K/mm3 (0.0-0.4); Eosinophils % 2.2 % (0.1-12.0); Hematocrit 25.3 % (37.0-47.0); Hemoglobin 8.1 g/dL (12.2-16.2); Lymphocytes # 0.7 K/mm3 (0.7-4.5); Lymphocytes % 11.4 % (10-50); Mean Corpuscular HGB Conc 32.2 g/dL (31.8-35.4); Mean Corpuscular Hemoglobin 29.6 pg (27.0-31.2); Mean Corpuscular Volume 92.1 fl (81-99); Mean Platelet Volume 8.3 fl (7.4-10.4); Monocytes # 0.4 K/mm3 (0.1-1.0); Monocytes % 6.4 % (1.7-9.3); Neutrophils # 4.7 K/mm3 (1.8-7.8); Neutrophils % 79.5 % (37.0-80.0); Platelet Count 182 K/mm3 (142-424); Red Blood Count 2.75 M/mm3 (4.20-5.40); Red Cell Distribution Width 11.7 % (11.5-17.5); White Blood Count 5.9 K/mm3 (4.8-10.8)
--- NOTE | 2020-06-07 08:30 | HMH.ACPN2 ---
Internal Medicine - PN: Subj *Date: 06/07/20 *Time: 08:30 Interval history: States she rested last night. Appetite is little better. Her pain is well controlled. She has had no further episodes of hypotension or weakness. Denies chest pain or palpitations. She is doing well with physical therapy. Exam Vital signs and Labs for Last 24 Hours: Temp Pulse Resp BP Pulse Ox 98.1 F 84 16 142/66 H 97 06/07/20 17:41 06/07/20 17:41 06/07/20 17:41 06/07/20 17:41 06/07/20 17:41 Laboratory Results - last 24 hr 06/07/20 06:38: WBC 5.9, RBC 2.75 L, Hgb 8.1 L, Hct 25.3 L, MCV 92.1, MCH 29.6, MCHC 32.2, RDW 11.7, Plt Count 182, MPV 8.3, Neut % (Auto) 79.5, Lymph % (Auto) 11.4, [place] % (Auto) 6.4, Eos % (Auto) 2.2, Baso % (Auto) 0.5, Neut # (Auto) 4.7, Lymph # (Auto) 0.7, [place] # (Auto) 0.4, Eos # (Auto) 0.1, Baso # (Auto) 0.0 06/07/20 06:38: Sodium 136, Potassium 3.3 L, Chloride 102, Carbon Dioxide 33 H, Anion Gap 4.3 L, BUN 10, Creatinine 0.70, Estimated Creat Clear 43, Estimated GFR 82, Est GFR ( Amer) 99, Glucose 109 H, Calcium 7.9 L 06/07/20 06:38: Magnesium 2.0 06/07/20 14:23: Stool Occult Blood Negative 06/07/20 15:15: Blood Type O Positive, Antibody Screen Negative, Crossmatch (AHG) See Detail 06/07/20 15:43: Blood Type Confirm O Positive I & O for Last 24 hours: Intake & Output 06/05/20 06/06/20 06/07/20 06/08/20 11:59 11:59 11:59 11:59 Intake Total 1100 / 1100 0 / 0 Output Total 1700 / 1700 2600 / 2600 1800 / 1800 Balance -600 / -600 -2600 / -2600 -1800 / -1800 0 / 0 Microbiology Reports for the Last 24 Hours: Microbiology 06/04/20 08:19 Urine,Catheterized Urine Culture - Final Escherichia coli Narrative: Resting comfortably in bed. Color slightly pale. No distress. Lungs are clear to auscultation. Heart is regular. Abdomen is soft and nondistended with no tenderness. Extremities no edema. Assessment and Plan (1) Closed left hip fracture Status: Acute Qualifiers: Encounter type: initial encounter Qualified Code(s): S72.002A - Fracture of unspecified part of neck of left femur, initial encounter for closed fracture Category: Medical Code(s): S72.002A - Fracture of unspecified part of neck of left femur, initial encounter for closed fracture (2) Syncope Status: Acute Category: Medical Code(s): R55 - Syncope and collapse (3) Hypertension Status: Chronic Category: Medical Code(s): I10 - Essential (primary) hypertension (4) Varicosities of leg Status: Chronic Category: Medical Code(s): I83.90 - Asymptomatic varicose veins of unspecified lower extremity (5) Heart murmur Status: Acute Category: Medical Code(s): R01.1 - Cardiac murmur, unspecified (6) UTI (urinary tract infection) Status: Acute Category: Medical Code(s): N39.0 - Urinary tract infection, site not specified (7) Pneumonia Status: Acute Category: Medical Code(s): J18.9 - Pneumonia, unspecified organism (8) Hypotension Status: Acute Category: Medical Code(s): I95.9 - Hypotension, unspecified (9) Postoperative anemia Status: Acute Category: Medical Code(s): D64.9 - Anemia, unspecified - Assessment and plan all Dx Assessment and Plan for all problems:: She rested well last night. She has been tolerating activity to the bedside commode and back and has done well with physical therapy. Blood pressure has been good. She is stable for discharge with home health care. Her blood pressure medications will be decreased. She will be sent home on iron supplement due to her anemia. She will follow-up with Dr. Vo in about 10 days and with [facility] and 3 weeks.
--- NOTE | 2020-06-07 08:35 | PC.NURSE ---
Dr. Salazar and Care management in room at this time.
--- NOTE | 2020-06-07 08:36 | PC.NURSE ---
Addendum entered by Lindsay Hendrix RN 06/07/20 08:46: also r/t distance to and from bathroom at home. Original Note: patient will need a bedside commode when she is discharged do to gait and mobility issues.
--- NOTE | 2020-06-07 13:10 | PC.NURSE ---
Nurse to pt. room, pt. reports feeling funny in her head and dizzy. BP noted to be 75/47. 1314- BP at 122/49. Pt. reports dizziness has gone away but funny feeling remains. Nurse called for 2nd nurse to assit in room. 1317 BP at 120/53 sitting. PT in room for therapy, nurse request PT to help pt. stand up for orthostatic BP. 1318 BP at 111/55 reports dizzy feeling has returned and resovled after a few minutes but funny feeling remains. Pt. also reports feeling very tired all of a sudden. PT assisted pt. back into bed. Nurse will contact .
--- NOTE | 2020-06-07 13:22 | PC.NURSE ---
Message left MD office to call OB department.
--- NOTE | 2020-06-07 14:02 | PC.NURSE ---
Spoke with Ad [facility] for Cardiology. report given, orders received to obtain occult blood of stool, and he will be over to see pt.
[2020-06-07 14:06] LABS: Chloride 102 mmol/L (98-107); Potassium 3.3 mmoL/L (3.5-5.1); Sodium 136 mmol/L (136-145)
[2020-06-07 14:09] LABS: Anion Gap 4.3 mEq/L (5-15); Blood Urea Nitrogen 10 mg/dl (7-17); Carbon Dioxide 33 mmol/L (22.0-30.0); Creatinine Clearance Estimated 43 mL/min (50-200); Estimated Glomerular Filt Rate 82 ml/min (>60); GFR (African American) 99 ML/MIN (>60)
[2020-06-07 14:10] LABS: Calcium 7.9 mg/dl (8.4-10.2); Glucose 109 mg/dl (74-100)
--- NOTE | 2020-06-07 14:35 | PC.NURSE ---
Ad [facility]INCENT. in room seeing pt.
[2020-06-07 14:41] LABS: Occult Blood,Stool Negative (Negative)
--- NOTE | 2020-06-07 14:42 | HMH.PNCARD ---
Subjective Date: 06/07/20 Time: 14:42 Principal diagnosis: L hip fx Interval history: Asked to see again for Near Syncope episode this afternoon while in bed with low BP noted thereafter. Same feeling as occurred prior to fall with hip Fx. Now s/p Left ORIF. Pt denies any chest pain or arrhythmias. Denies any abdominal pain or diarrhea. No history of tobacco use, DM or HLD. FH of CAD in mother in her early 60's. EKG this afternoon is sinus without acute changes. Echo this admit shows normal LVEF with mild LVH/DD, mild MR. Exam Vital signs and Labs for Last 24 Hours: Temp Pulse Resp BP Pulse Ox 98.3 F 76 18 122/49 L 95 06/07/20 13:12 06/07/20 13:12 06/07/20 13:12 06/07/20 13:14 06/07/20 13:12 Laboratory Results - last 24 hr 06/07/20 06:38: WBC 5.9, RBC 2.75 L, Hgb 8.1 L, Hct 25.3 L, MCV 92.1, MCH 29.6, MCHC 32.2, RDW 11.7, Plt Count 182, MPV 8.3, Neut % (Auto) 79.5, Lymph % (Auto) 11.4, [place] % (Auto) 6.4, Eos % (Auto) 2.2, Baso % (Auto) 0.5, Neut # (Auto) 4.7, Lymph # (Auto) 0.7, [place] # (Auto) 0.4, Eos # (Auto) 0.1, Baso # (Auto) 0.0 06/07/20 06:38: Sodium 136, Potassium 3.3 L, Chloride 102, Carbon Dioxide 33 H, Anion Gap 4.3 L, BUN 10, Creatinine 0.70, Estimated Creat Clear 43, Estimated GFR 82, Est GFR ( Amer) 99, Glucose 109 H, Calcium 7.9 L 06/07/20 14:23: Stool Occult Blood Negative I & O for Last 24 hours: Intake & Output 06/05/20 06/06/20 06/07/20 06/08/20 11:59 11:59 11:59 11:59 Intake Total 1100 / 1100 Output Total 1700 / 1700 2600 / 2600 1800 / 1800 Balance -600 / -600 -2600 / -2600 -1800 / -1800 Microbiology Reports for the Last 24 Hours: Microbiology 06/04/20 08:19 Urine,Catheterized Urine Culture - Final Escherichia coli - Constitutional no acute distress - *Routine HEENT Exam Head: Present: normocephalic Eye: Present: EOMI, PERRL ENT: Present: mucous membranes moist - *Routine Neck Exam Present: supple. Absent: lymphadenopathy - *Routine Respiratory Exam Present: CTA bilaterally - *Routine Cardiovascular Exam Present: RRR - *Routine Abdominal Exam Present: soft, normoactive bowel sounds. Absent: tenderness - *Routine Extremities Exam Absent: cyanosis, clubbing, edema - *Routine Skin Exam Present: warm. Absent: rash - *Routine Neurological Exam Present: alert, oriented X3 Progress Note: A&P (1) Closed left hip fracture Status: Acute (2) Syncope Status: Acute (3) Hypertension Status: Chronic (4) Varicosities of leg Status: Chronic (5) Heart murmur Status: Acute (6) UTI (urinary tract infection) Status: Acute (7) Pneumonia Status: Acute Assessment and Plan for All Diagnoses:: 1. Funny feeling in head with near syncope/syncope and low BP. Etiology unknown. Recommend cancelling discharge and start telemetry monitoring. If no further episodes or arrhythmias noted then home with 48 hr holter or 30 [address] event monitor[address] Can place loop recorder as outpatient if needed. 2. Anemia. Discussed with Dr. Salazar and he will order transfusion to get Hgb >10. Stool hemocult has been obtained. Results pending. 3. HTN, continue current meds and follow vitals. 4. Elevated BNP likely related to pneumonia on CXR. Pt has had negative urine output of >5L this admission with elevated BUN. 5. Hip Fx, s/p repair. 6. Pneumonia,on Abx. The above discussed with Dr. Salazar. Nothing further to add at this time. Please call if needed.
--- NOTE | 2020-06-07 14:47 | ECG_ITS ---
APPROVED REPORT Exam: Resting ECG HR:78 bpm ECG Measurements Heart Rate 78 AXES OH 134 P 36 QRSd 82 QRS 26 QT 382 T 28 QTc 435 Conclusion Normal sinus rhythm Minimal voltage criteria for LVH, may be normal variant ST abnormality, possible digitalis effect Abnormal ECG Electronically signed by : Lee Esposito, 06/07/2020 15:57:49
--- NOTE | 2020-06-07 16:45 | PC.NURSE ---
02 level at 84% on RA. Nurse encouraged deep breathing. Pt. v/u and began deep breathing. O2 levels up to 96%. Nurse instructed pt. to breathe normally. Pt. breathing normally O2 level dropped to 85%. 1L O2 applied at this time, o2 sats up to 96% on 1L. Pt. tolerating well, will continue to monitor.
--- NOTE | 2020-06-07 17:11 | PC.NURSE ---
Routine reassessment completed. VSS. Pt. receiving blood, tolerating well. No further acute changes noted since previous assessment. Lungs remains CTA, Heart at RR, murmur noted. BS present x4 quad. Pt. has en in bed since near syncopal episode earlier in the day. Pt. denies needs, dinner tray within reach, will continue to monitor.
--- NOTE | 2020-06-07 18:20 | PC.NURSE ---
PT WAS GIVEN HYPERTONIC SALINE NEB AND CUP AND INSTRUCTED ON WHAT TO DO. CUP LEFT AT BEDSIDE.
--- NOTE | 2020-06-07 19:38 | PC.NURSE ---
Report given to Mian Rutledge RN.
[2020-06-07 22:10] LABS: Hematocrit 32.7 % (37.0-47.0)
[2020-06-08] VITALS: PULSE 75
[2020-06-08 04:00] VITALS: BP 148/66; PULSE 70; PULSE 88; RESP 18; TEMP 36.7; O2SAT 96
--- NOTE | 2020-06-08 04:04 | PC.NURSE ---
Pt has slept in intervals this shift. Pt A&O x 4, BLT lungs CTA, Bowel sounds present in all 4 quadrants, Pt IV S/L, Pt on 1L NC, Assistance x2 when up to the bedside, Pt denies SOA, headache, diziness, or n/v. Pt medicated for pain per MAR
--- NOTE | 2020-06-08 06:41 | PC.NURSE ---
Attempted to wean Pt off 1L NC, Pt 95% on 1L, Pt up to bedside commode and o2 saturation dropped 89%, Pt denies SOA but appears to be winded.
[2020-06-08 07:09] LABS: Chloride 101 mmol/L (98-107); Sodium 135 mmol/L (136-145)
[2020-06-08 07:12] LABS: Blood Urea Nitrogen 8 mg/dl (7-17); Creatinine Clearance Estimated 43 mL/min (50-200); Estimated Glomerular Filt Rate 97 ml/min (>60); GFR (African American) 118 ML/MIN (>60)
[2020-06-08 07:13] LABS: Calcium 8.5 mg/dl (8.4-10.2); Carbon Dioxide 32 mmol/L (22.0-30.0); Glucose 102 mg/dl (74-100)
[2020-06-08 07:34] LABS: Basophils % 0.6 % (0.1-2.0); Eosinophils # 0.2 K/mm3 (0.0-0.4); Hematocrit 37.7 % (37.0-47.0); Lymphocytes % 13.6 % (10-50); Mean Corpuscular HGB Conc 33.1 g/dL (31.8-35.4); Mean Corpuscular Hemoglobin 29.9 pg (27.0-31.2); Mean Corpuscular Volume 90.4 fl (81-99); Mean Platelet Volume 8.4 fl (7.4-10.4); Monocytes # 0.4 K/mm3 (0.1-1.0); Monocytes % 5.1 % (1.7-9.3); Neutrophils # 5.6 K/mm3 (1.8-7.8); Neutrophils % 77.6 % (37.0-80.0); Platelet Count 234 K/mm3 (142-424); Red Blood Count 4.17 M/mm3 (4.20-5.40); Red Cell Distribution Width 13.5 % (11.5-17.5); White Blood Count 7.1 K/mm3 (4.8-10.8)
[2020-06-08 07:41] LABS: Hemoglobin 12.5 g/dL (12.2-16.2)
[2020-06-08 08:00] VITALS: BP 153/71; PULSE 91; RESP 20; TEMP 36.8; O2SAT 96
--- NOTE | 2020-06-08 08:00 | PC.NURSE ---
PT ASSESSED AT THIS TIME. BILATERAL LUNG SOUNDS DIMINISHED. NO EDEMA NOTED. DRESSING ON L LEG IS C/D/I. SCUD AND LAURENCE NOTED ON R LEG. PT STATES PAIN IN L LEG THAT IS A 3/10 ON VERBAL SCALE. PT HAD AN EPISODE OF NAUSEA THIS MORNING AND MEDICATED PER EMAR. PT IS ON 1L O2 VIA NC. PT DENIES SOB. WILL WEAN OFF O2. WILL CONTINUE TO OBSERVE.
--- NOTE | 2020-06-08 08:26 | XR_ITS ---
PROCEDURE: XR CHEST 2V CLINICAL HISTORY: f/u pneumonia COMPARISON: CR XR CHEST PORTABLE from 06/02/2020 CR XR CHEST PORTABLE from 06/03/2020 CR XR CHEST PORTABLE from 06/04/2020 FINDINGS: The cardiomediastinal silhouette and pulmonary vascularity are within normal limits. There has been interval improvement in the right lower lobe pneumonia. Calcified granulomas present in the left lower lobe. Degenerative changes thoracic spine. Old granulomatous disease. IMPRESSION: Improvement in right lower lobe pneumonia Dictated by: Vicente Werner MD 06/08/2020 10:23 Vicente Werner MD in [facility] 06/08/2020 10:23
--- NOTE | 2020-06-08 08:40 | PC.NURSE ---
DR. DAY AT BEDSIDE AT THIS TIME. STATES TO WEAN PT TO RA AND ORDERS FOR CHEST XRAY. IF ALL IS WELL PLANS FOR DC THIS AFTERNOON. ORDERS REPEATED AND VERIFIED.
--- NOTE | 2020-06-08 08:57 | HMH.ACPN2 ---
Internal Medicine - PN: Subj *Date: 06/08/20 *Time: 08:57 Interval history: She rested well through the night. She received 2 units of blood last evening and tolerated this well. She complains of some mild nausea this morning but no vomiting. Pain is controlled with current oral pain medication. She has continued on 1 L of nasal oxygen and dropped to 89% when attempting to wean to room air this morning. Denies cough, shortness of breath, or chest pain. Exam Vital signs and Labs for Last 24 Hours: Temp Pulse Resp BP Pulse Ox 98.3 F 91 H 20 153/71 H 96 06/08/20 08:00 06/08/20 08:00 06/08/20 08:00 06/08/20 08:00 06/08/20 08:00 Laboratory Results - last 24 hr 06/07/20 06:38: Sodium 136, Potassium 3.3 L, Chloride 102, Carbon Dioxide 33 H, Anion Gap 4.3 L, BUN 10, Creatinine 0.70, Estimated Creat Clear 43, Estimated GFR 82, Est GFR ( Amer) 99, Glucose 109 H, Calcium 7.9 L 06/07/20 06:38: Magnesium 2.0 06/07/20 14:23: Stool Occult Blood Negative 06/07/20 15:15: Blood Type O Positive, Antibody Screen Negative, Crossmatch (AHG) See Detail 06/07/20 15:43: Blood Type Confirm O Positive 06/07/20 22:02: Hgb 11.0 L D, Hct 32.7 L 06/08/20 06:31: WBC 7.1, RBC 4.17 L D, Hgb 12.5 D, Hct 37.7, MCV 90.4, MCH 29.9, MCHC 33.1, RDW 13.5, Plt Count 234 D, MPV 8.4, Neut % (Auto) 77.6, Lymph % (Auto) 13.6, Emmet % (Auto) 5.1, Eos % (Auto) 3.0, Baso % (Auto) 0.6, Neut # (Auto) 5.6, Lymph # (Auto) 1.0, Emmet # (Auto) 0.4, Eos # (Auto) 0.2, Baso # (Auto) 0.0 06/08/20 06:31: Sodium 135 L, Potassium 4.0 D, Chloride 101, Carbon Dioxide 32 H, Anion Gap 6.0, BUN 8, Creatinine 0.60, Estimated Creat Clear 43, Estimated GFR 97, Est GFR ( Amer) 118, Glucose 102 H, Calcium 8.5 I & O for Last 24 hours: Intake & Output 06/05/20 06/06/20 06/07/20 06/08/20 11:59 11:59 11:59 11:59 Intake Total 1100 / 1100 546 / 546 Output Total 1700 / 1700 2600 / 2600 1800 / 1800 900 / 900 Balance -600 / -600 -2600 / -2600 -1800 / -1800 -354 / -354 Microbiology Reports for the Last 24 Hours: Microbiology 06/04/20 08:19 Urine,Catheterized Urine Culture - Final Escherichia coli Narrative: She is sitting up in bed, alert and oriented. Color is good. Lungs are clear to auscultation. Heart is regular with no ectopy. Abdomen is soft and nondistended with no unusual tenderness. Extremities no edema. teletypesetter monitor shows normal sinus rhythm. Posttransfusion hemoglobin is 12.5 Assessment and Plan (1) Closed left hip fracture Status: Acute Qualifiers: Encounter type: initial encounter Qualified Code(s): S72.002A - Fracture of unspecified part of neck of left femur, initial encounter for closed fracture Category: Medical Code(s): S72.002A - Fracture of unspecified part of neck of left femur, initial encounter for closed fracture (2) Syncope Status: Acute Category: Medical Code(s): R55 - Syncope and collapse (3) Hypertension Status: Chronic Category: Medical Code(s): I10 - Essential (primary) hypertension (4) Varicosities of leg Status: Chronic Category: Medical Code(s): I83.90 - Asymptomatic varicose veins of unspecified lower extremity (5) Heart murmur Status: Acute Category: Medical Code(s): R01.1 - Cardiac murmur, unspecified (6) UTI (urinary tract infection) Status: Acute Category: Medical Code(s): N39.0 - Urinary tract infection, site not specified (7) Pneumonia Status: Acute Category: Medical Code(s): J18.9 - Pneumonia, unspecified organism (8) Hypotension Status: Acute Category: Medical Code(s): I95.9 - Hypotension, unspecified (9) Postoperative anemia Status: Acute Category: Medical Code(s): D64.9 - Anemia, unspecified - Assessment and plan all Dx Assessment and Plan for all problems:: Plan to repeat chest x-ray this morning to follow-up on pneumonia and attempt to wean to room air again. If chest x-ray is sati
--- NOTE | 2020-06-08 09:05 | PC.NURSE ---
PT UP TO CHAIR AT THIS TIME OXYGEN TAKEN OFF AT THIS TIME. SPO2 MONITOR IN PLACE SPO2 NOTED @ 98%. WILL CONTINUE TO OBSERVE.
--- NOTE | 2020-06-08 09:10 | PC.NURSE ---
SPO2 NOTED AT 96% ON RA
[2020-06-08 09:12] VITALS: O2SAT 96
--- NOTE | 2020-06-08 09:41 | PC.NURSE ---
PT TAKEN OFF UNIT AT THIS TIME FOR XRAY
--- NOTE | 2020-06-08 09:50 | PC.NURSE ---
Pt returned to room at this time.
--- NOTE | 2020-06-08 10:39 | PC.NURSE ---
dr. colbert at bedside at this time.
--- NOTE | 2020-06-08 10:43 | PC.NURSE ---
Physical therapy at bedside
--- NOTE | 2020-06-08 11:30 | PC.NURSE ---
Respirator at bedside placing halter monitor and going over instructions.
--- NOTE | 2020-06-08 12:45 | PC.NURSE ---
DISCHARGE INSTRUCTIONS GONE OVER AT THIS TIME. PT AND INSTRUCTED ON DRESSING CHANGES AND LOVENOX INJECTIONS. PT AND VU. QUESTIONS ENCOURAGED AND ANSWERED AT THIS TIME. IV DC'D.
--- NOTE | 2020-06-08 13:05 | PC.NURSE ---
PT ASSISTED OFF UNIT X1 [facility] STAFF AT THIS TIME.
--- NOTE | 2020-06-10 09:33 | HMH.DCSUM ---
General - General Admission date:: 06/02/20 <Rao Salazar - 06/18/20 14:46> 06/02/20 <OlvinMela morgan - 06/10/20 10:29> Discharge date: 06/08/20 <Mela Bah - 06/10/20 10:29> HPI HPI: Ms. Zelaya was a 75-year-old female with a history of hypertension, and varicose veins, who was brought by her to [facility] emergency room for evaluation after a fall. She stated that she felt funny and then the next thing she remembered was sitting in a chair on the porch. Her stated, per ER report, that she tripped and fell. She did not recall this. She stated she just felt funny but denied having any chest pain, shortness of breath, palpitations, or dizziness. She did not feel that she injured any other part of her body. After the fall she was lifted to the chair by her and EMS was called. EMS helped to load her in the truck to be brought to the emergency room as she was unable to bear weight. Patient did give a history of some GI upset with nausea but no vomiting during the week prior. She did have diarrhea one day. She had not had any upper respiratory symptoms to include cough, shortness of breath, or fever. She had not been eating and drinking as usual. She denied previous chest pain and shortness of breath. She was usually healthy and had not been hospitalized since the of her youngest child 49 years prior. Laboratory data revealed white blood cell count of 13,000 with a hemoglobin of 11 and hematocrit of 36.8. Sodium was 151 with potassium of 4.6; kidney function with a BUN of 44 and creatinine 1.4. With evaluation in the emergency room she was found to be afebrile and received a liter of IV fluids as well as morphine for pain and Zofran for nausea. CT of the head and C-spine and left hip were evaluated showing all were negative except for relatively non-acute displaced fracture of the left femoral neck extending into the lesser trochanter. Chest x-ray on admission showed the following: Slight coarsening of the markings bilaterally most likely reflecting mild chronic changes, possibly with subtle vascular congestion as well. Cardiomegaly. Mild accentuation of markings infrahilar regions elsewhere most likely reflecting chronic change and mild atelectasis. Consider, and might suggest follow-up chest x-ray in morning to re-evaluate in attempt to better exclude subtle early infiltrate in view of the leukocytosis, particularly at right infrahilar region. EKG was normal and revealed a normal sinus rhythm. <Mela Bah - 06/10/20 10:29> Hospital Course Hospital Course: The following morning the patient appeared comfortable lying in bed after receiving pain medicine. She remained n.p.o. for possible surgery. She continued to deny chest pain and shortness of breath. Ortho saw the patient and recommended intramedullary nail in the left femure to be done as soon as medically cleared and the patient elected to proceed. Cardiology was consulted for surgical clearance and ordered Echo which showed EF of 55% and troponin which was normal. Thus, patient was considered to be an acceptable surgical candidate. The patient ran a fever greater than 101F that night and by the morning of 06/04/2020 she had an elevated white blood cell count of 12,100 with hemoglobin of 10.7 and hematocrit of 32.1. Repeat urine showed negative ketones, 1+ blood, positive nitrates, and trace bacteria. Urine culture was done as well as blood cultures. CXR was repeated which showed RLL infiltrate/pneumonia. She was started on Rocephin and Zithromax pending results of blood cultures. Later that day, she underwent intramedullary nailing of the left femur without complication with estimated blood loss of 150cc. The following morning, she was doing well other than pain in the left hip. Her white blood cell count had normalized. Her was assisting her with regular use of the incentive spirometer. She was seen by physical geographer
== END 2020-06-08 13:05 | disposition home health service (06) | DRG 480 ==
LOC: ER 19:39 → 2ND 21:51 → OB 21:51
PROVIDERS: Nurse Practitioner Family; Orthopaedic Surgery; Physician Assistant; Admitting Provider Family Medicine; Emergency Provider Emergency Medicine; PCP Family Medicine; Visit Provider Family Medicine
PROC: 0QH736Z Insertion of Intramedullary Internal Fixation Device into Left Upper Femur, Percutaneous Approach (ICD-10-PCS; CPT 27245; principal; 2020-06-04 13:15)
DX: S72.142A Displaced intertrochanteric fracture of left femur, initial encounter for closed fracture (principal); J18.9 Pneumonia, unspecified organism; N39.0 Urinary tract infection, site not specified; W01.0XXA Fall on same level from slipping, tripping and stumbling without subsequent striking against object, initial encounter; Y92.018 Other place in single-family (private) house as the place of occurrence of the external cause; I10 Essential (primary) hypertension; R55 Syncope and collapse; I95.9 Hypotension, unspecified; D64.9 Anemia, unspecified; I83.90 Asymptomatic varicose veins of unspecified lower extremity
CPT/HCPCS: 27245; 36415; 70450; 71045; 71046; 72125; 73502; 73700; 76000; 80048; 80053; 81001; 82272; 83735; 83880; 84484; 85007; 85014; 85018; 85025; 86328; 86850; 87040; 87086; 87088; 87186; 93005; 93225; 93226; 93306; 96365; 96375; 96376; 97110; 97116; 97161; 97166; 97530; 99284; C1713; C1776; G0328; J0456; J2405; P9016

== ENCOUNTER → 2020-06-19 11:13 | Outpatient (CLI) | payer MEDICARE, SELFPAY ==
--- NOTE | 2020-06-19 11:21 | XR_ITS ---
PROCEDURE: XR HIP LT 2-3V W/PELVIS CLINICAL INDICATION: s/p hip fx COMPARISON: CR XR HIP LT 2-3V W/PELVIS from 06/04/2020 FINDINGS: T2 gamma nails are again seen fixated to the short intramedullary anuj stabilizing the basicervical femoral neck fracture in near anatomic alignment. The femoral head appears viable. There is minimal early callus formation at the inferior extent of the femoral neck fracture. Metallic skin sutures are still in place. IMPRESSION: Satisfactory ORIF left hip fracture Dictated by: Dr. Osmani Velez MD 06/19/2020 12:02 Dr. Osmani Velez MD in [place] 06/19/2020 12:02
== END ==
PROVIDERS: PCP Family Medicine; Visit Provider Orthopaedic Surgery
DX: S72.002A Fracture of unspecified part of neck of left femur, initial encounter for closed fracture (principal)
CPT/HCPCS: 73502

== ENCOUNTER → 2020-07-19 11:03 | Outpatient (CLI) | payer MEDICARE, SELFPAY ==
--- NOTE | 2020-07-19 11:06 | XR_ITS ---
PROCEDURE: XR HIP LT 2-3V W/PELVIS CLINICAL INDICATION: s/p IMN L femur for IT fx Follow-up fracture COMPARISON: CR XR HIP LT 2-3V W/PELVIS from 06/19/2020 FINDINGS: Left gamma nails are present with I am anuj with good alignment stabilizing the left intertrochanteric fracture with developing callus formation. There are mild osteoarthritic changes of the hips. IMPRESSION: Good alignment status post ORIF left intertrochanteric fracture Dictated by: Vicente Werner MD 07/19/2020 15:04 Vicente Werner MD in [place] 07/19/2020 15:04
== END ==
PROVIDERS: PCP Family Medicine; Visit Provider Orthopaedic Surgery
DX: S72.142A Displaced intertrochanteric fracture of left femur, initial encounter for closed fracture (principal)
CPT/HCPCS: 73502

== ENCOUNTER → 2020-08-30 10:53 | Outpatient (CLI) | payer MEDICARE, SELFPAY ==
--- NOTE | 2020-08-30 10:58 | XR_ITS ---
PROCEDURE: XR HIP LT 2-3V W/PELVIS CLINICAL INDICATION: s/p IMN L femur for IT fx COMPARISON: CR XR HIP LT 2-3V W/PELVIS from 07/19/2020 FINDINGS: STATUS POST DOUBLE GAMMA NAIL AND SHORT INTRAMEDULLARY BRAXTON PLACEMENT INTO THE LEFT PROXIMAL FEMUR STABILIZING THE INTERTROCHANTERIC FRACTURE WITH GOOD ALIGNMENT. DEVELOPING CALLUS FORMATION IS NOTED. THERE IS SOME HETEROTOPIC OSSIFICATION SUPERIOR TO THE I AM BRAXTON. IMPRESSION: GOOD ALIGNMENT STATUS POST ORIF LEFT FEMORAL FRACTURE DESCRIBED ABOVE Dictated by: Vicente Werner MD 08/30/2020 11:50 Vicente Werner MD in [place] 08/30/2020 11:50
== END ==
PROVIDERS: PCP Family Medicine; Visit Provider Orthopaedic Surgery
DX: S72.002A Fracture of unspecified part of neck of left femur, initial encounter for closed fracture (principal)
CPT/HCPCS: 73502

== ENCOUNTER → 2020-10-25 15:29 | Outpatient (CLI) | payer MEDICARE, SELFPAY ==
--- NOTE | 2020-10-25 15:36 | XR_ITS ---
PROCEDURE: XR HIP LT 2-3V W/PELVIS CLINICAL INDICATION: s/p IMN L hip Follow-up fracture COMPARISON: CR XR HIP LT 2-3V W/PELVIS from 06/02/2020 CR XR HIP LT 2-3V W/PELVIS from 08/30/2020 FINDINGS: S/p ORIF intertrochanteric fracture left hip. Two gamma nails and a short intramedullary anuj stabilizing the fracture with developing callus formation in good alignment. Heterotopic ossification noted along greater trochanter. IMPRESSION: Status post ORIF left hip with good alignment Dictated by: Vicente Werner MD 10/25/2020 16:10 Vicente Werner MD in [place] 10/25/2020 16:10
== END ==
PROVIDERS: PCP Family Medicine; Visit Provider Orthopaedic Surgery
DX: S72.002A Fracture of unspecified part of neck of left femur, initial encounter for closed fracture (principal)
CPT/HCPCS: 73502

== ENCOUNTER 2023-06-18 16:53 | Outpatient (CLI) | payer MEDICARE, SELFPAY ==
--- NOTE | 2023-06-18 16:55 | MM_ITS ---
PROCEDURE INFORMATION: Exam: MG Bilateral Screening 3D Mammography Exam date and time: 06/18/2023 4:42 PM Age: 78 years old Clinical indication: Screening. No family history of breast cancer. TECHNIQUE: Imaging protocol: Bilateral Screening tomosynthesis and 2D mammography including computer-aided detection (CAD) when performed. COMPARISON: 1. MG MM DIG SCREENING MAMM BI W/CAD 02/21/2020 3:22 PM 2. MG SCBI MM Dig screening mamm BI w/CAD 04/20/2018 10:36 AM 3. MG DMSB DIG MAMM-SCREEN TERESA W/CAD 03/10/2017 10:11 AM 4. MG DMSB DIG MAMM-SCREEN TERESA 12/18/2015 3:53 PM FINDINGS: MAMMOGRAPHY: Breast composition: There are scattered areas of fibroglandular density. Mass: None. Architectural distortion: None. Calcifications: No suspicious calcifications. Asymmetric density: No developing asymmetry. Skin thickening: None. Axillary adenopathy: None. IMPRESSION: No mammographic evidence of malignancy. Annual screening is recommended unless otherwise clinically indicated. ASSESSMENT: BI-RADS Category 1: Negative
== END 2023-06-18 23:59 ==
PROVIDERS: PCP Family Medicine; Visit Provider Family Medicine
DX: Z12.31 Encounter for screening mammogram for malignant neoplasm of breast (principal)
CPT/HCPCS: 77063; 77067

== ENCOUNTER 2023-06-23 09:14 | Outpatient (CLI) | payer MEDICARE, SELFPAY ==
[2023-06-23 10:13] LABS: Creatinine,Urine Random 76 mg/dL (Not Estab.)
[2023-06-23 10:18] LABS: Basophils % 0.5 % (0.1-2.0); Eosinophils # 0.1 K/mm3 (0.0-0.4); Eosinophils % 1.8 % (0.1-12.0); Hematocrit 41.7 % (37.0-47.0); Hemoglobin 13.5 g/dL (12.2-16.2); Lymphocytes # 1.1 K/mm3 (0.7-4.5); Lymphocytes % 16.9 % (10-50); Mean Corpuscular HGB Conc 32.3 g/dL (31.8-35.4); Mean Corpuscular Hemoglobin 31.8 pg (27.0-31.2); Mean Corpuscular Volume 98.4 fl (81-99); Mean Platelet Volume 7.7 fl (7.4-10.4); Monocytes # 0.3 K/mm3 (0.1-1.0); Neutrophils % 76.8 % (37.0-80.0); Platelet Count 206 K/mm3 (142-424); Red Blood Count 4.24 M/mm3 (4.20-5.40); Red Cell Distribution Width 12.7 % (11.5-17.5); White Blood Count 6.5 K/mm3 (4.8-10.8)
[2023-06-23 10:43] LABS: Chloride 101 mmol/L (98-107)
[2023-06-23 10:44] LABS: Potassium 4.1 mmoL/L (3.5-5.1); Sodium 137 mmol/L (136-145)
[2023-06-23 10:46] LABS: Alanine Aminotransferase 16 U/L (12-78); Alkaline Phosphatase 89 U/L (38-126); Anion Gap 4.1 mEq/L (5-15); Aspartate Amino Transferase 31 U/L (14-36); Bilirubin,Total 0.6 mg/dl (0.2-1.3); Blood Urea Nitrogen 12 mg/dl (7-17); Carbon Dioxide 36 mmol/L (22.0-30.0); Estimated Glomerular Filt Rate 69 ml/min (>60); GFR (African American) 84 ML/MIN (>60)
[2023-06-23 10:47] LABS: Albumin Level 4.1 g/dl (3.5-5.0); Albumin/Globulin Ratio 1.5 (1.1-1.8); Calcium 9.1 mg/dl (8.4-10.2); Globulin 2.7 g/dL (1.3-3.2); Glucose 94 mg/dl (74-100); Total Protein,Serum 6.8 g/dl (6.3-8.2)
== END 2023-06-23 23:59 ==
LOC: LAB 09:15
PROVIDERS: PCP Family Medicine; Visit Provider Family Medicine
DX: R80.9 Proteinuria, unspecified; I10 Essential (primary) hypertension
CPT/HCPCS: 36415; 80053; 82043; 82570; 85025

== ENCOUNTER 2023-11-23 10:52 | Observation (INO) | payer MEDICARE, SELFPAY ==
[2023-11-23] VITALS (9 sets, daily range): BP systolic 154–230; BP diastolic 50–92; PULSE 58–73; RESP 14–20; TEMP 36.5–36.8; O2SAT 96–99; BMI 20.9; BMI 20.6
--- NOTE | 2023-11-23 11:53 | ED_ITS ---
Discharge Plan Disposition Patient Disposition: Admitted Condition: Good Prescriptions Prescriptions: New naproxen 500 mg tablet 500 mg PO BID Qty: 20 0RF No Action ferrous sulfate 325 MG tablet 325 mg PO BID Qty: 60 0RF Referrals Follow up/Referrals: Rao Salazar MD [Primary Care Provider] - See instructions Clinical Impressions Clinical Impression: Radiculopathy affecting upper extremity, Severe hypertension Instructions Patient Instructions: DI for Cervical Radiculopathy, DI for Acute Pain -- Adult Discharge ED Provider: Connie Mckeon General Adult HPI <Connie Mckeon DO - Last Filed: 11/23/23 16:06> General Chief complaint: PAIN Stated complaint: left arm and neck pain Time Seen by Provider: 11/23/23 11:47 Mode of Arrival: Ambulatory Source of Information: Patient Limitations: No Limitations Description of Symptoms (Recalled from ER Triage Doc. by RN): pt to ed c/o left forearm pain x2 days. pt denies injury. pt reports mild nausea today. History of Present Illness HPI narrative: This patient is a 78-year-old female with a history of hypertension presenting to the emergency department for evaluation with concern for pain radiating down her left arm. It seems to start up in her left shoulder/upper back. She states that it mostly bothers her at night. She gets numbness and tingling in her first 3 digits of her left upper extremity when the pain is present. She denies any known falls or injuries. No chest pain or shortness of breath. She took Tylenol with good improvement at home. No other concerns noted at this time. Related Data Previous Rx's Medication Instructions Recorded ferrous sulfate 325 mg (65 mg 325 mg PO BID #60 tabs 06/07/20 iron) tablet naproxen 500 mg tablet 500 mg PO BID #20 tabs 11/23/23 Allergies Allergy/AdvReac Type Severity Reaction Status Date / Time No Known Allergies Allergy Verified 10/25/20 16:19 PFSH <Connie Mckeon DO - Last Filed: 11/23/23 16:06> [facility] Disclaimer: The information contained in this section may have been updated after the patient was seen, as this information can be updated by other users. Social History Smoking Status: Never smoker alcohol intake: never substance use type: denies use current occupational status: other Travel in the last 8 weeks: None household members: spouse housing: house current occupation: HOUSEWIFE current occupational exposures/hazards: No caffeine: Yes <Connei Mckeon DO - Last Filed: 11/23/23 16:06> ROS Obtained: Yes All systems reviewed & no additional complaints except as documented Physical Exam <Connie Mckeon DO - Last Filed: 11/23/23 16:06> General General appearance: alert and in no apparent distress Head Head exam: atraumatic and normocephalic Eye Eye exam: Present normal appearance, PERRL and EOMI ENT ENT exam: Present normal exam, normal oropharynx, mucous membranes moist and normal external ear exam Neck Neck exam: Present normal inspection, full ROM and trachea midline; Absent tenderness Chest Chest inspection: Present normal inspection and symmetric chest wall rise; Absent tenderness Respiratory Respiratory exam: Present normal lung sounds bilaterally; Absent respiratory distress, wheezes, stridor or accessory muscle use Cardiovascular Cardiovascular exam: Present regular rate and normal rhythm Abdominal Exam Abdominal exam: Present soft; Absent distention, tenderness or guarding Extremities Exam Extremities exam: Present normal inspection, full ROM and normal capillary refill; Absent tenderness or edema Back Exam Back exam: Present normal inspection and full ROM; Absent tenderness Neurological Exam Neurological exam: Present alert, oriented X3, CN II-XII intact and normal gait; Absent motor sensory deficit Psychiatric Psychiatric exam: Present normal affect and normal mood Skin Skin exam: Present warm and dry Medical Decision Making <Connie Mckeon DO - Last Filed: 11/23/23 16:06> Medical Records Medical records reviewed: Yes I reviewed the patient's medical records. Mitch Inquiry Pt receiving controlled substance: No Vital Signs: 11/23/23 11:11 11/23/23 12:42 11/23/23 13:00 Temperature 97.8 F Temperature Source Oral Pulse Rate 58 L Pulse Rate [Left Radial] 61 Respiratory Rate 16 16 Blood Pressure 230/80 H 205/74 H Blood Pressure [Right Arm] 206/60 H Blood Pressure Mean [Right Arm] 108 Blood Pressure Source Manual Cuff/ Auscultation 02 Sat by Pulse Oximetry 97 97 Oxygen Delivery Method Room Air 11/23/23 15:18 11/23/23 16:01 11/23/23 17:00 Temperature Temperature Source Pulse Rate 67 73 66 Pulse Rate [Left Radial] Respiratory Rate 19 14 14 Blood Pressure 195/73 H 162/50 H 154/72 H Blood Pressure [Right Arm] Blood Pressure Mean [Right Arm] Blood Pressure Source 02 Sat by Pulse Oximetry 97 98 97 Oxygen Delivery Method Lab Data Lab results reviewed: Yes I reviewed the patient's lab results. Lab Results 11/23/23 13:30: WBC 4.7 L, RBC 4.15 L, Hgb 13.2, Hct 39.5, MCV 95.2, MCH 31.9 H, MCHC 33.5, RDW 13.1, Plt Count 189, MPV 8.2, Neut % (Auto) 74.7, Lymph % (Auto) 18.8, Churchill % (Auto) 3.8, Eos % (Auto) 1.2, Baso % (Auto) 1.5, Neut # (Auto) 3.5, Lymph # (Auto) 0.9, Churchill # (Auto) 0.2, Eos # (Auto) 0.1, Baso # (Auto) 0.1, S odium 132 L, Potassium 4.3, Chloride 98, Carbon Dioxide 28, Anion Gap 10.3, BUN 16, Creatinine 0.70, Estimated Creat Clear 33, Estimated GFR 81, Est GFR ( Amer) 98, Glucose 100, Calcium 9.1, Total Bilirubin 0.7, AST 37 H, ALT 17, Alkaline Phosphatase 77, Troponin I < 0.01, Total Protein 7.1, Albumin 4.3, Globulin 2.8, Albumin/Globulin Ratio 1.5 11/23/23 16:06: Troponin I < 0.01 11/23/23 13:30 11/23/23 13:30 Orders (Tests/Meds): ED MEDICATIONS Discontinued Medications Generic Name Dose Route Start Last Admin Trade Name Freq PRN Reason Stop Dose Admin Acetaminophen 1,000 mg 11/23/23 13:17 11/23/23 13:37 Acetaminophen 500mg Tab PO 11/23/23 13:18 1,000 mg ONCE ONE Administration Hydralazine HCl 10 mg 11/23/23 14:39 11/23/23 15:10 Hydralazine 20mg/Ml Vial IV 11/23/23 14:40 10 mg ONCE ONE Administration Iopamidol 100 ml 11/23/23 14:14 11/23/23 14:15 Iopamidol-370 (76%);100ml Bottle IV 11/23/23 14:15 100 ml ONCE ONE Administration Ketorolac Tromethamine 30 mg 11/23/23 11:51 11/23/23 12:01 Ketorolac 30mg/Ml Vial IM 11/23/23 11:52 30 mg ONCE ONE Administration Lidocaine 1 each 11/23/23 11:51 11/23/23 12:01 Lidocaine 5% Transdermal Patch TP 11/23/23 11:52 1 each ONCE ONE Administration Sodium Chloride 10 ml 11/23/23 14:14 11/23/23 14:15 Sodium Chloride 0.9% 10ml Syr (Rad Only) IV 11/23/23 14:15 10 ml ONCE ONE Administration Sodium Chloride 50 ml 11/23/23 14:14 11/23/23 14:15 0.9 % Sodium Chloride 50 Ml Vial IV 11/23/23 14:15 50 ml ONCE ONE Administration ORDERS Category Date Time Status CT cervical spine wo con Stat Cat Scan 11/23/23 13:[address] thoracic spine wo con Stat Cat Scan 11/23/23 13:17 Completed CTA Chest [CT angio chest - dissection] Stat Cat Scan 11/23/23 13:17 Completed Elbow XR left mininum 3 views [XR elbow LT min 3V] Stat Exams 11/23/23 14:03 Completed Forearm XR left 2 views [XR forearm LT 2V] Stat Exams 11/23/23 14:03 Completed Humerus XR left [XR humerus LT] Stat Exams 11/23/23 14:03 Completed Shoulder XR left minimum 2 views [XR shoulder LT min 2V Exams 11/23/23 14:03 Completed ] Stat Complete Blood Count Auto Diff Stat Lab 11/23/23 13:30 Completed Comprehensive Metabolic Panel Stat Lab 11/23/23 13:30 Completed Trop I [Troponin I] Stat Lab 11/23/23 13:30 Completed Troponin I Q3H Lab 11/23/23 16:06 Completed Troponin I Q3H Lab 11/23/23 18:45 Ordered ECG Data Tracing #1: I reviewed this ECG and interpreted as documented below: Sinus bradycardia with a ventricular rate of [address] changes concerning for ischemia. Normal axis and intervals. Left ventricular hypertrophy. ECG initial impression date: 11/23/23 ECG initial impression time: 12:08 Medical Decision Narrative: In summary, this patient is a 78-year-old female presenting to the Emergency Department for evaluation of left arm pain radiating from her neck/upper back that is mostly present at night and has been going on for several days. Differential diagnoses considered include but are not limited to hypertensive emergency, ACS, aortic pathology, cervical radiculopathy, thoracic radiculopathy, peripheral neuropathy, musculoskeletal strain/sprain. Ruling out the most morbid conditions drove assessment. On exam, patient is very well-appearing with reassuring vital signs on cardiac telemetry with exception of hypertension. Systolics are in the 220s to 230s. She has good equal pulses bilaterally and good sensation in the left upper extremity. Strength is normal. Cardiopulmonary exam is reassuring. Ultimately, I feel she likely has radiculopathy causing her pain. Given her significant hypertension and symptoms, will workup as hypertensive emergency versus aortic pathology. Patient believes she took her blood pressure medications at home, but she cannot remember what they are and she is not 100% positive. Her is going home to check and see if she did. On multiple subsequent reassessments, the patient continues to have significant hypertension despite treatment in her left upper extremity pain with lidocaine patch, Toradol, and Tylenol. I obtained lab evaluation including metabolic panel and troponin which is reassuring without acutely concerning abnormality. Troponin negative. EKG is reassuring. I also obtained a CTA of the chest as well as x-rays of the left upper extremity which did not demonstrate any aortic pathology or acute injury of the left arm. I also obtained CTs of the spines to see if she could have spinal abnormality that was causing radiculopathy, but there is nothing obvious that would likely cause the symptoms on CT spine. Please see radiology read for final interpretation. I give the patient IV hydralazine, which improved her blood pressure to the 190s systolics. I advised to the patient that I would likely recommend admission for continued monitoring of her blood pressure. She states she is not sure if she would want to be admitted and she would rather wait for her to come back to see what her medications are and whether or not she took them. Waiting for her to return at this time. I did have a preemptive discussion with Dr. Esposito who is on-call for her primary care provider and he advised that if she chooses to go home instead, she can be started on low-dose amlodipine and follow-up for recheck of her blood pressure tomorrow either here in the emergency department or try to get in with Dr. Salazar. Patient care signed out to oncoming provider, Dr. Levi. <Nadir Levi MD - Last Filed: 11/23/23 17:32> Vital Signs: 11/23/23 11:11 11/23/23 12:42 11/23/23 13:00 Temperature 97.8 F Temperature Source Oral Pulse Rate 58 L Pulse Rate [Left Radial] 61 Respiratory Rate 16 16 Blood Pressure 230/80 H 205/74 H Blood Pressure [Right Arm] 206/60 H Blood Pressure Mean [Right Arm] 108 Blood Pressure Source Manual Cuff/ Auscultation 02 Sat by Pulse Oximetry 97 97 Oxygen Delivery Method Room Air 11/23/23 15:18 11/23/23 16:01 11/23/23 17:00 Temperature Temperature Source Pulse Rate 67 73 66 Pulse Rate [Left Radial] Respiratory Rate 19 14 14 Blood Pressure 195/73 H 162/50 H 154/72 H Blood Pressure [Right Arm] Blood Pressure Mean [Right Arm] Blood Pressure Source 02 Sat by Pulse Oximetry 97 98 97 Oxygen Delivery Method Lab Data Lab Results 11/23/23 13:30: WBC 4.7 L, RBC 4.15 L, Hgb 13.2, Hct 39.5, MCV 95.2, MCH 31.9 H, MCHC 33.5, RDW 13.1, Plt Count 189, MPV 8.2, Neut % (Auto) 74.7, Lymph % (Auto) 18.8, Churchill % (Auto) 3.8, Eos % (Auto) 1.2, Baso % (Auto) 1.5, Neut # (Auto) 3.5, Lymph # (Auto) 0.9, Churchill # (Auto) 0.2, Eos # (Auto) 0.1, Baso # (Auto) 0.1, S odium 132 L, Potassium 4.3, Chloride 98, Carbon Dioxide 28, Anion Gap 10.3, BUN 16, Creatinine 0.70, Estimated Creat Clear 33, Estimated GFR 81, Est GFR ( Amer) 98, Glucose 100, Calcium 9.1, Total Bilirubin 0.7, AST 37 H, ALT 17, Alkaline Phosphatase 77, Troponin I < 0.01, Total Protein 7.1, Albumin 4.3, Globulin 2.8, Albumin/Globulin Ratio 1.5 11/23/23 16:06: Troponin I < 0.01 Orders (Tests/Meds): ED MEDICATIONS Discontinued Medications Generic Name Dose Route Start Last Admin Trade Name Basilq PRN Reason Stop Dose Admin Acetaminophen 1,000 mg 11/23/23 13:17 11/23/23 13:37 Acetaminophen 500mg Tab PO 11/23/23 13:18 1,000 mg ONCE ONE Administration Hydralazine HCl 10 mg 11/23/23 14:39 11/23/23 15:10 Hydralazine 20mg/Ml Vial IV 11/23/23 14:40 10 mg ONCE ONE Administration Iopamidol 100 ml 11/23/23 14:14 11/23/23 14:15 Iopamidol-370 (76%);100ml Bottle IV 11/23/23 14:15 100 ml ONCE ONE Administration Ketorolac Tromethamine 30 mg 11/23/23 11:51 11/23/23 12:01 Ketorolac 30mg/Ml Vial IM 11/23/23 11:52 30 mg ONCE ONE Administration Lidocaine 1 each 11/23/23 11:51 11/23/23 12:01 Lidocaine 5% Transdermal Patch TP 11/23/23 11:52 1 each ONCE ONE Administration Sodium Chloride 10 ml 11/23/23 14:14 11/23/23 14:15 Sodium Chloride 0.9% 10ml Syr (Rad Only) IV 11/23/23 14:15 10 ml ONCE ONE Administration Sodium Chloride 50 ml 11/23/23 14:14 11/23/23 14:15 0.9 % Sodium Chloride 50 Ml Vial IV 11/23/23 14:15 50 ml ONCE ONE Administration ORDERS Category Date Time Status CT cervical spine wo con Stat Cat Scan 11/23/23 13:[address] thoracic spine wo con Stat Cat Scan 11/23/23 13:17 Completed CTA Chest [CT angio chest - dissection] Stat Cat Scan 11/23/23 13:17 Completed Elbow XR left mininum 3 views [XR elbow LT min 3V] Stat Exams 11/23/23 14:03 Completed Forearm XR left 2 views [XR forearm LT 2V] Stat Exams 11/23/23 14:03 Completed Humerus XR left [XR humerus LT] Stat Exams 11/23/23 14:03 Completed Shoulder XR left minimum 2 views [XR shoulder LT min 2V Exams 11/23/23 14:03 Completed ] Stat Complete Blood Count Auto Diff Stat Lab 11/23/23 13:30 Completed Comprehensive Metabolic Panel Stat Lab 11/23/23 13:30 Completed Trop I [Troponin I] Stat Lab 11/23/23 13:30 Completed Troponin I Q3H Lab 11/23/23 16:06 Completed Troponin I Q3H Lab 11/23/23 18:45 Ordered Medical Decision Narrative: In summary, this patient is a 78-year-old female presenting to the Emergency Department for evaluation of left arm pain radiating from her neck/upper back that is mostly present at night and has been going on for several days. Differential diagnoses considered include but are not limited to hypertensive emergency, ACS, aortic pathology, cervical radiculopathy, thoracic radiculopathy, peripheral neuropathy, musculoskeletal strain/sprain. Ruling out the most morbid conditions drove assessment. On exam, patient is very well-appearing with reassuring vital signs on cardiac telemetry with exception of hypertension. Systolics are in the 220s to 230s. She has good equal pulses bilaterally and good sensation in the left upper extremity. Strength is normal. Cardiopulmonary exam is reassuring. Ultimately, I feel she likely has radiculopathy causing her pain. Given her significant hypertension and symptoms, will workup as hypertensive emergency versus aortic pathology. Patient believes she took her blood pressure medications at home, but she cannot remember what they are and she is not 100% positive. Her is going home to check and see if she did. On multiple subsequent reassessments, the patient continues to have significant hypertension despite treatment in her left upper extremity pain with lidocaine patch, Toradol, and Tylenol. I obtained lab evaluation including metabolic panel and troponin which is reassuring without acutely concerning abnormality. Troponin negative. EKG is reassuring. I also obtained a CTA of the chest as well as x-rays of the left upper extremity which did not demonstrate any aortic pathology or acute injury of the left arm. I also obtained CTs of the spines to see if she could have spinal abnormality that was causing radiculopathy, but there is nothing obvious that would likely cause the symptoms on CT spine. Please see radiology read for final interpretation. I give the patient IV hydralazine, which improved her blood pressure to the 190s systolics. I advised to the patient that I would likely recommend admission for continued monitoring of her blood pressure. She states she is not sure if she would want to be admitted and she would rather wait for her to come back to see what her medications are and whether or not she took them. Waiting for her to return at this time. I did have a preemptive discussion with Dr. Esposito who is on-call for her primary care provider and he advised that if she chooses to go home instead, she can be started on low-dose amlodipine and follow-up for recheck of her blood pressure tomorrow either here in the emergency department or try to get in with Dr. Salazar. Patient care signed out to oncoming provider, Dr. Levi. Gurmeet: Upon my assumption of care patient is stable and resting comfortably, her blood pressure has improved to the 150s. She states some of her symptoms have improved, her left arm still feels tingly. Patient does have findings of foraminal narrowing in the cervical CT which could be contributing to her symptoms in the arm. brought patient's blood pressure log to bedside which demonstrates patient has large blood pressure swings during the day. In the morning, her blood pressure is often above 180, as high as 205 recently, in the evenings however she is low, 110s to 120s. I am concerned that patient continues having these large blood pressure swings and that she has been symptomatic from them which resulted in her presentation to the ER today. I believe she requires admission. I discussed this further with the patient who is now amenable to admission for further evaluation of her blood pressure and management of her medications. I discussed this with Dr. Urbano who is the on- call provider for Dr. Salazar. He agrees with the plan for admission which will be under Dr. Dietrich. And requested every 4 hours blood pressure checks. Patient was admitted. Critical Care <Connie Mckeon, DO - Last Filed: 11/23/23 16:06> Critical Care Time Critical Care Time: No
[2023-11-23] MEDS: LIDOCAINE 5% TRANSDERMAL PATCH 1 EACH TP (12:01)
[2023-11-23] MEDS: KETOROLAC 30MG/ML VIAL 30 MG IM (12:01)
--- NOTE | 2023-11-23 12:07 | ECG_ITS ---
APPROVED REPORT Exam: Resting ECG HR:53 bpm ECG Measurements Heart Rate 53 AXES MA 201 P 68 QRSd 93 QRS 61 QT 425 T 56 QTc 407 Conclusion SINUS BRADYCARDIA POSSIBLE LEFT VENTRICULAR HYPERTROPHY [VOLTAGE CRITERIA PLUS LAE OR QRS WIDENING] ABNORMAL ECG Electronically signed by : CARIN HICKS, 11/23/2023 16:21:44
--- NOTE | 2023-11-23 13:17 | CT_ITS ---
FINAL REPORT TECHNIQUE: Axial images through the thoracic spine were performed. Sagittal reconstruction images were performed. This study was performed with techniques to keep radiation doses as low as reasonably achievable, (ALARA). Individualized dose reduction techniques using automated exposure control or adjustment of mA and/or kV according to the patient's size were employed. CLINICAL HISTORY: back pain rad down L arm, L hand numb, HTN FINDINGS: There is partial ankylosis of multiple thoracic vertebral body degrees. Endplate hypertrophic changes results in left canal stenosis at T8-9 and bilateral canal stenosis at T9-10. There is a large osteophyte arising from the T12 inferior endplate causing canal stenosis at T12-L1. IMPRESSION: No fracture or dislocation. Hypertrophic bony changes contributing to multilevel canal stenosis. Reviewed, Interpreted and Dictated by Sumeet Holland MD Transcribed by Suly Castañeda Authenticated and [facility]
--- NOTE | 2023-11-23 13:17 | CT_ITS ---
FINAL REPORT TECHNIQUE: Thin section axial CT with contrast with multiplanar reconstruction CLINICAL HISTORY: back pain rad down L arm, L hand numb, HTN FINDINGS: Pulmonary vessels enhance in normal fashion without evidence of embolism. Thoracic aorta shows no dissection or aneurysm. No pulmonary mass or infiltrate is present. There is no significant pleural effusion. There is no significant pericardial effusion. No mediastinal or hilar adenopathy is present. There is a hypodense lesion in the central liver dome, likely a cyst. IMPRESSION: No evidence of pulmonary embolism. Reviewed, Interpreted and Dictated by Sumeet Holland MD Transcribed by Suly Castañeda Authenticated and [facility]
--- NOTE | 2023-11-23 13:17 | CT_ITS ---
FINAL REPORT TECHNIQUE: Axial images were obtained of the cervical spine by computed tomography. Coronal and sagittal reconstruction process performed. This study was performed with techniques to keep radiation doses as low as reasonably achievable (ALARA). Individualized dose reduction techniques using automated exposure control or adjustment of mA and/or kV according to the patient''s size were employed. CLINICAL HISTORY: back pain rad down L arm, L hand numb, HTN COMPARISON: 06/02/2020 FINDINGS: No acute fracture is identified. There is spondylosis and significant facet arthropathy. Bony hypertrophic changes are noted. There is significant neural foraminal narrowing extending from C3-4 through C6-7. There is probable degenerative canal stenosis in the lower cervical spine. IMPRESSION: No evidence of fracture. Significant degenerative changes. MRI could better evaluate. Reviewed, Interpreted and Dictated by Sumeet Holland MD Transcribed by Suly Castañeda Authenticated and [facility]
[2023-11-23] MEDS: ACETAMINOPHEN 500MG TAB 1000 MG PO (13:37)
[2023-11-23 13:49] LABS: Alanine Aminotransferase 17 U/L (12-78); Albumin Level 4.3 g/dl (3.5-5.0); Albumin/Globulin Ratio 1.5 (1.1-1.8); Alkaline Phosphatase 77 U/L (38-126); Anion Gap 10.3 mEq/L (5-15); Aspartate Amino Transferase 37 U/L (14-36); Bilirubin,Total 0.7 mg/dl (0.2-1.3); Blood Urea Nitrogen 16 mg/dl (7-17); Calcium 9.1 mg/dl (8.4-10.2); Carbon Dioxide 28 mmol/L (22.0-30.0); Chloride 98 mmol/L (98-107); Creatinine Clearance Estimated 33 mL/min (50-200); Estimated Glomerular Filt Rate 81 ml/min (>60); GFR (African American) 98 ML/MIN (>60); Globulin 2.8 g/dL (1.3-3.2); Glucose 100 mg/dl (74-100); Potassium 4.3 mmoL/L (3.5-5.1); Sodium 132 mmol/L (136-145); Total Protein,Serum 7.1 g/dl (6.3-8.2)
[2023-11-23 13:58] LABS: Basophils # 0.1 K/mm3 (0-0.2); Basophils % 1.5 % (0.1-2.0); Eosinophils # 0.1 K/mm3 (0.0-0.4); Eosinophils % 1.2 % (0.1-12.0); Hematocrit 39.5 % (37.0-47.0); Hemoglobin 13.2 g/dL (12.2-16.2); Lymphocytes # 0.9 K/mm3 (0.7-4.5); Lymphocytes % 18.8 % (10-50); Mean Corpuscular HGB Conc 33.5 g/dL (31.8-35.4); Mean Corpuscular Hemoglobin 31.9 pg (27.0-31.2); Mean Corpuscular Volume 95.2 fl (81-99); Mean Platelet Volume 8.2 fl (7.4-10.4); Monocytes # 0.2 K/mm3 (0.1-1.0); Monocytes % 3.8 % (1.7-9.3); Neutrophils # 3.5 K/mm3 (1.8-7.8); Neutrophils % 74.7 % (37.0-80.0); Platelet Count 189 K/mm3 (142-424); Red Blood Count 4.15 M/mm3 (4.20-5.40); Red Cell Distribution Width 13.1 % (11.5-17.5); White Blood Count 4.7 K/mm3 (4.8-10.8)
[2023-11-23 14:02] LABS: Troponin I < 0.01 ng/ml (0.00-0.034)
--- NOTE | 2023-11-23 14:03 | XR_ITS ---
FINAL REPORT CLINICAL HISTORY: pain FINDINGS: Three views show no evidence of an acute, displaced fracture or dislocation of the visualized bony architecture. There are mild degenerative changes of the AC and glenohumeral joints. IMPRESSION: Degenerative changes. No acute bony abnormality. Reviewed, Interpreted and Dictated by Sumeet Holland MD Transcribed by Suly Castañeda Authenticated and [facility]
--- NOTE | 2023-11-23 14:03 | XR_ITS ---
FINAL REPORT CLINICAL HISTORY: pain FINDINGS: Two views of the left forearm were obtained. There is no acute fracture or dislocation. The joints are intact. There are no soft tissue abnormalities. IMPRESSION: No acute process. Reviewed, Interpreted and Dictated by Sumeet Holland MD Transcribed by Suly Castañeda Authenticated and [facility]
--- NOTE | 2023-11-23 14:03 | XR_ITS ---
FINAL REPORT CLINICAL HISTORY: pain FINDINGS: Three views of the left elbow were obtained. There is no acute fracture or dislocation. The joint space appears normal. No acute soft tissue abnormality is seen. IMPRESSION: No acute process. Reviewed, Interpreted and Dictated by Sumeet Holland MD Transcribed by Suly Castañeda Authenticated and [facility]
--- NOTE | 2023-11-23 14:03 | XR_ITS ---
FINAL REPORT CLINICAL HISTORY: pain FINDINGS: Two views show no evidence of an acute, displaced fracture or dislocation of the visualized bony architecture. The joint spaces appear normal. IMPRESSION: Unremarkable exam. Reviewed, Interpreted and Dictated by Sumeet Holland MD Transcribed by Suly Castañeda Authenticated and [facility]
[2023-11-23] MEDS: 0.9 % SODIUM CHLORIDE 50 ML VIAL IV (14:15)
[2023-11-23] MEDS: IOPAMIDOL-370 (76%);100ML BOTTLE 100 ML IV (14:15)
[2023-11-23] MEDS: SODIUM CHLORIDE 0.9% 10ML SYR (RAD ONLY) 10 ML IV (14:15)
[2023-11-23] MEDS: HYDRALAZINE 20MG/ML VIAL 10 MG IV (15:10)
[2023-11-23 17:05] LABS: Troponin I < 0.01 ng/ml (0.00-0.034)
--- NOTE | 2023-11-23 17:19 | PC.NURSE ---
cornel Mccoy at this time.
--- NOTE | 2023-11-23 17:26 | PC.NURSE ---
WILLIAM Haro notified of admission
[2023-11-23] MEDS: AMLODIPINE 5MG TABLET 10 MG PO (18:55)
[2023-11-23 19:24] LABS: Troponin I < 0.01 ng/ml (0.00-0.034)
[2023-11-24] VITALS: BP 156/74; PULSE 62; RESP 16; TEMP 36.6; O2SAT 96
--- NOTE | 2023-11-24 00:30 | PC.NURSE ---
patient c/o headache. Dr Esposito notified and order received for Tylenol 650 mg po q 6 hr prn .
[2023-11-24] MEDS: ACETAMINOPHEN 325MG TAB 650 MG PO (00:37)
[2023-11-24 04:00] VITALS: BP 152/69; PULSE 60; RESP 16; TEMP 36.5; O2SAT 98; BMI 20.8
[2023-11-24 07:55] LABS: Blood Urea Nitrogen 16 mg/dl (7-17); Calcium 8.7 mg/dl (8.4-10.2); Carbon Dioxide 25 mmol/L (22.0-30.0); Chloride 102 mmol/L (98-107); Creatinine Clearance Estimated 36 mL/min (50-200); Estimated Glomerular Filt Rate 69 ml/min (>60); GFR (African American) 84 ML/MIN (>60); Glucose 92 mg/dl (74-100); Sodium 133 mmol/L (136-145)
[2023-11-24 08:00] VITALS: BP 162/66; PULSE 63; RESP 18; TEMP 36.7; O2SAT 97
--- NOTE | 2023-11-24 09:07 | EXP.HPDC ---
General Admission date:: 11/23/23 Discharge date: 11/24/23 *Admission Date: 11/23/23 *Chief complaint: left arm pain *History of present illness: This patient is a 78-year-old female with a history of hypertension presenting to the emergency department for evaluation with concern for pain radiating down her left arm. It seems to start up in her left shoulder/upper back. She states that it mostly bothers her at night. She gets numbness and tingling in her first 3 digits of her left upper extremity when the pain is present. She denies any known falls or injuries. No chest pain or shortness of breath. She took Tylenol with good improvement at home. No other concerns noted at this time. (above as per ER physician) The patient's BP was very elevated despite medications given in the ER so she was admitted overnight for monitoring of her BP. [facility] Disclaimer: The information contained in this section may have been updated after the patient was seen, as this information can be updated by other users. Medical History (Updated 11/24/23 @ 09:55 by CARLTON Ramirez) Closed left hip fracture Syncope Heart murmur Varicosities of leg Hypertension Surgical History (Updated 11/24/23 @ 09:55 by CARLTON Ramirez) History of tubal ligation History of repair of left hip joint Family History (Updated 11/24/23 @ 09:55 by CARLTON Ramriez) Diabetes Heart attack Hypertension Stroke Social History (Updated 11/23/23 @ 17:46 by Jaci Kendall RN) Smoking Status: Never smoker alcohol intake: never substance use type: denies use current occupational status: other Travel in the last 8 weeks: None household members: spouse housing: house current occupation: HOUSEWIFE current occupational exposures/hazards: No caffeine: Yes Review of Systems Constitutional Constitutional: Denies fatigue, Denies headache(s) and Denies weakness Eyes Eyes: Denies blurry vision and Denies diplopia ENT Ears, Nose, Mouth, and Throat: Denies headache(s), Denies nasal congestion, Reports neck pain, Denies sore throat and Denies vertigo *Cardiovascular Cardiovascular: Denies chest pain, Denies dyspnea and Denies leg edema *Respiratory Respiratory: Denies cough and Denies dyspnea *Gastrointestinal Gastrointestinal: Denies abdominal pain, Denies loose stools, Denies nausea and Denies vomiting *Musculoskeletal Musculoskeletal: Denies myalgias, Reports neck pain, Reports numbness (left arm) and Reports radiating pain into limb (left arm) *Neurologic Neurologic: Denies headache(s), Reports numbness (left arm), Reports radicular pain (left arm), Denies vertigo and Denies weakness Endocrine Endocrine: Denies fatigue Exam Data for Last 24 hours Vital signs and Labs for Last 24 Hours: Temp Pulse Resp BP Pulse Ox O2 Del Method 98.1 F 63 18 162/66 H 97 Room Air 11/24/23 08:00 11/24/23 08:00 11/24/23 08:00 11/24/23 08:00 11/24/23 08:00 11/24/23 08:00 Laboratory Results - last 24 hr 11/23/23 13:30: WBC 4.7 L, RBC 4.15 L, Hgb 13.2, Hct 39.5, MCV 95.2, MCH 31.9 H, MCHC 33.5, RDW 13.1, Plt Count 189, MPV 8.2, Neut % (Auto) 74.7, Lymph % (Auto) 18.8, [place] % (Auto) 3.8, Eos % (Auto) 1.2, Baso % (Auto) 1.5, Neut # (Auto) 3.5, Lymph # (Auto) 0.9, [place] # (Auto) 0.2, Eos # (Auto) 0.1, Baso # (Auto) 0.1, Sodium 132 L, Potassium 4.3, Chloride 98, Carbon Dioxide 28, Anion Gap 10.3, BUN 16, Creatinine 0.70, Estimated Creat Clear 33, Estimated GFR 81, Est GFR ( Amer) 98, Glucose 100, Calcium 9.1, Total Bilirubin 0.7, AST 37 H, ALT 17, Alkaline Phosphatase 77, Troponin I < 0.01, Total Protein 7.1, Albumin 4.3, Globulin 2.8, Albumin/Globulin Ratio 1.5 11/23/23 16:06: Troponin I < 0.01 11/23/23 18:43: Troponin I < 0.01 11/24/23 05:50: Sodium 133 L, Potassium 4.0, Chloride 102, Carbon Dioxide 25, Anion Gap 10.0, BUN 16, Creatinine 0.80, Estimated Creat Clear 36, Estimated GFR 69, Est GFR ( Amer) 84, Glucose 92, Calcium 8.7 I & O for Last 24 hours: Intake & Output 11/21/23 11/22/23 11/23/23 11/24/23 11:59 11:59 11:59 11:59 Intake Total 830 / 830 Output Total 0 / 0 Balance 830 / 830 Weight 100 lb 110 lb 8 oz Constitutional Constitutional: no acute distress *Routine HEENT Exam Head: Present normocephalic and atraumatic Eye: Present EOMI and PERRL ENT: Present mucous membranes moist *Routine Neck Exam Neck: Present supple and full ROM *Routine Respiratory Exam Respiratory: Present CTA bilaterally *Routine Cardiovascular Exam Cardiovascular: Present RRR *Routine Abdominal Exam Abdominal: Present soft and normoactive bowel sounds; Absent tenderness *Routine Rectal Exam Rectal:: deferred *Routine Genitalia Exam Genitalia:: deferred *Routine Extremities Exam Extremities: Absent cyanosis, clubbing or edema *Routine Skin Exam Skin: Present intact; Absent erythema *Routine Neurological Exam Neurological: Present alert and oriented X3 Meds Home Medications and Allergies Home Medications ?Medication ?Instructions ?Recorded ?Confirmed ?Type atenolol 50 mg tablet 50 mg PO BID 11/23/23 11/23/23 History benazepril 10 mg tablet 10 mg PO DAILY 11/23/23 11/23/23 History naproxen 500 mg tablet 500 mg PO BID #20 tabs 11/23/23 Rx New Prescriptions to Start Prescriptions: Connie Henao Allergies Allergy/AdvReac Type Severity Reaction Status Date / Time No Known Allergies Allergy Verified 10/25/20 16:19 Hospital Course Hospital Course Hospital Course: The patient's BP did come down with hydralazine and amlodipine. Her left arm pain and numbness improved as well. She was stable to be discharged home and will f/u with Dr. Salazar. She will likely need and MRI of the neck. Results Data Completed and Pending Labs on day of discharge: Labs from last 24 hours 11/24/23 11/23/23 11/23/23 05:50 18:43 16:06 WBC RBC Hgb Hct MCV MCH MCHC RDW Plt Count MPV Neut % (Auto) Lymph % (Auto) [place] % (Auto) Eos % (Auto) Baso % (Auto) Neut # (Auto) Lymph # (Auto) [place] # (Auto) Eos # (Auto) Baso # (Auto) Sodium 133 L Potassium 4.0 Chloride 102 Carbon Dioxide 25 Anion Gap 10.0 BUN 16 Creatinine 0.80 Estimated Creat Clear 36 Estimated GFR 69 Est GFR ( Amer) 84 Glucose 92 Calcium 8.7 Total Bilirubin AST ALT Alkaline Phosphatase Troponin I < 0.01 < 0.01 Total Protein Albumin Globulin Albumin/Globulin Ratio 11/23/23 13:30 WBC 4.7 L RBC 4.15 L Hgb 13.2 Hct 39.5 MCV 95.2 MCH 31.9 H MCHC 33.5 RDW 13.1 Plt Count 189 MPV 8.2 Neut % (Auto) 74.7 Lymph % (Auto) 18.8 [place] % (Auto) 3.8 Eos % (Auto) 1.2 Baso % (Auto) 1.5 Neut # (Auto) 3.5 Lymph # (Auto) 0.9 [place] # (Auto) 0.2 Eos # (Auto) 0.1 Baso # (Auto) 0.1 Sodium 132 L Potassium 4.3 Chloride 98 Carbon Dioxide 28 Anion Gap 10.3 BUN 16 Creatinine 0.70 Estimated Creat Clear 33 Estimated GFR 81 Est GFR ( Amer) 98 Glucose 100 Calcium 9.1 Total Bilirubin 0.7 AST 37 H ALT 17 Alkaline Phosphatase 77 Troponin I < 0.01 Total Protein 7.1 Albumin 4.3 Globulin 2.8 Albumin/Globulin Ratio 1.5 Impressions Impressions: Cervical spine CT?significant degenerative changes Chest CTA?no evidence of PE Thoracic spine CT?hypertrophic bony changes contributing to multilevel canal stenosis Elbow x-ray?nothing acute Forearm x-ray?nothing acute Humerus x-ray?unremarkable Shoulder x-ray?degenerative changes DS: Diagnosis Discharge Diagnosis (1) Severe hypertension: Status: Acute Code(s): I10 - Essential (primary) hypertension (2) Radiculopathy affecting upper extremity: Status: Acute Code(s): M54.10 - Radiculopathy, site unspecified Discharge Plan Disposition Patient Disposition: Home, Self-Care Condition: Good Follow up Plan Follow up with: Rao Salazar MD [Primary Care Provider] - 12/02/23 10:45 am Prescriptions/Medication Reconciliation: New naproxen 500 mg tablet 500 mg PO BID Qty: 20 0RF Continued benazepril 10 mg Tablet 10 mg PO DAILY atenolol 50 mg Tablet 50 mg PO BID Problem Reconciliation Problems Reviewed?: Yes Patient Discharge Instructions ACTIVITY: Continue current activity DIET: continue same diet Patient Instructions: DI for High Blood Pressure Print Language: Finnish Providers Primary Care Provider: Rao Salazar Admit Provider: Lee Esposito Attending Provider: George Dietrich
--- NOTE | 2023-11-25 15:39 | CARE MANAGER ---
Spoke with patient regarding recent discharge. Patient stated that she is feeling some better. She has picked up prescription from pharmacy and was aware of f/u appt. No concerns voiced at time of call.
== END 2023-11-24 10:15 | disposition home or self-care (01) ==
LOC: ER 17:26 → 2ND 17:33
PROVIDERS: Admitting Provider Internal Medicine Adolescent Medicine; Emergency Provider Emergency Medicine; PCP Family Medicine; Visit Provider Family Medicine
DX: M54.10 Radiculopathy, site unspecified (principal); I10 Essential (primary) hypertension
CPT/HCPCS: 36415; 71275; 72125; 72128; 73030; 73060; 73080; 73090; 80048; 80053; 84484; 85025; 93005; 99285; G0378; J1885; Q9967